=== PATIENT | male | born 1960 | race Caucasian/White ===

== ENCOUNTER 2016-11-23 04:57 | Emergency (ER) | payer MEDICARE, OTHER ==
[~2016-11-23 04:57] MED LIST: CLON0.5T PO; DIAS12.5 PR; OXCA300T2 PO; PHEN100 PO; PHEN30 PO; PHEN64.8 PO; POLY10O EACH EYE
[2016-11-23 05:01] VITALS: BP 157/65; PULSE 65; RESP 16; TEMP 97.6; O2SAT 95
[2016-11-23] MEDS ORDERED: TRIL300T PO ×4 (05:09→05:26)
[2016-11-23] MEDS ORDERED: [UNRECOGNIZED DRUG - CODE] PO (05:26)
[2016-11-23] MEDS ORDERED: PHEN-414 PO (05:26)
[2016-11-23] MEDS ORDERED: DILA100C PO (05:26)
[2016-11-23] MEDS ORDERED: PHENO60 PO ×2 (05:26)
[2016-11-23] MEDS ORDERED: CLON0.5T PO (05:26)
--- NOTE | 2016-11-23 05:28 | PD ---
HPI . Seizure Chief Complaint: Seizure Time Seen by Provider: 05:14 Travel History International Travel<30 days: No Contact w/Intl Traveler<30days: No Traveled to known affect area: No History of Present Illness HPI Patient was brought to us via [facility] with the chief complaint of seizure 3 in the past 24 hours. Patient has a known seizure disorder. He is treated with Dilantin and Keppra. The patient has developmental delay and lives with his mother. Mother reports dysuria and is concerned that he has urinary tract infection. Patient denies any injury related to the seizure. PFSH Past Medical History Arthritis: No Asthma: No Autoimmune Disease: No Blood Disorders: No Heart Rhythm Problems: No Cancer: No Cardiomyopathy: No Cardiovascular Problems: No High Cholesterol: No Chemotherapy: No Chest Pain: No Congestive Heart Failure: No COPD: No Cerebrovascular Accident: No Developmental Delay: Yes Diabetes: No Diminished Hearing: No Endocrine: No Gastrointestinal Disorders: No GERD: No Glaucoma: No Genitourinary: No Headaches: Yes Hepatitis: No Hiatal Hernia: No Hypertension: No Immune Disorder: No Implanted Vascular Access Dvce: Yes Kidney Stones: No Musculoskeletal: No Neurologic: Yes Psychiatric: No Reproductive: No Respiratory: No Immunizations Current: Yes Myocardial Infarction: No Radiation Therapy: No Renal Failure: No Seizures: Yes (EPILEPSY) Sleep Apnea: No Thyroid Disease: No Ulcer: No Tetanus Vaccination: > 5 Years Influenza Vaccination: No Past Surgical History Abdominal Surgery: Yes (Appendectomy) AICD: No Appendectomy: Yes Body Medical Devices: SHIRAZ NERVE STIMULATOR Cardiac Surgery: No Ear Surgery: No Endocrine Surgery: No Eye Surgery: No Genitourinary Surgery: No Gynecologic Surgery: No Joint Replacement: No Neurologic Surgery: Yes (IMPLANT - NERVE STIMULATOR) Oral Surgery: No Pacemaker: No Thoracic Surgery: No Other Surgery: Yes (skull fracture repair 1952 per mother) Social History Alcohol Use: No Tobacco Use: No Substance Use: No Allergies-Medications (Allergen,Severity, Reaction): Coded Allergies: ANTIHISTAMINE DRUGS (Verified Allergy, Severe, 08/12/15) Depakote (Verified Allergy, Severe, 08/12/15) Uncoded Allergies: THERAFLU (Allergy, Severe, Seizures, 12/10/11) Reported Meds & Prescriptions Reported Meds & Active Scripts Active Reported Briviact (Brivaracetam) 50 Mg/5 Ml Inj 50 Mg PO DAILY Phenobarbital 32.4 Mg Tab 32.4 Mg PO HS Phenobarbital 64.8 Mg Tab 64.8 Mg PO DAILYAC Phenobarbital 64.8 Mg Tab 64.8 Mg PO DAILY Dilantin (Phenytoin Extended) 100 Mg Cap 100 Mg PO HS Clonazepam 0.5 Mg Tab 0.5 Mg PO HS Trileptal (Oxcarbazepine) 300 Mg Tab 300 Mg PO DAILY Trileptal (Oxcarbazepine) 300 Mg Tab 300 Mg PO AC LUNCH Trileptal (Oxcarbazepine) 300 Mg Tab 600 Mg PO HS Trileptal (Oxcarbazepine) 300 Mg Tab 600 Mg PO DAILY@0600 Review of Systems Except as stated in HPI: all other systems reviewed are Neg General / Constitutional: No: Fever, Chills Genitourinary: Positive: Dysuria Neurologic: Positive: Seizures Physical Exam Narrative GENERAL: The patient is slow to respond but answers questions appropriately. He is in no acute distress. SKIN: Warm and dry. HEAD: Atraumatic. Normocephalic. EYES: Pupils equal and round. ENT: No nasal bleeding or discharge. Mucous membranes pink and moist. No injury to the tongue. NECK: Trachea midline. Neck is supple. CARDIOVASCULAR: Regular rate and rhythm. Heart sounds are normal. RESPIRATORY: No accessory muscle use. Lungs are clear with full air movement throughout. GASTROINTESTINAL: Abdomen soft, non-tender, nondistended. MUSCULOSKELETAL: No obvious deformities. No edema. NEUROLOGICAL: Awake and alert. No obvious cranial nerve deficits. Motor grossly within normal limits. Normal speech. PSYCHIATRIC: Appropriate mood and affect; insight and judgment normal. Data Data Last Documented VS Vital Signs Date Time Temp Pulse Resp B/P Pulse Ox O2 Delivery O2 Flow Rate FiO2 11/23/16 05:01 97.6 65 16 157/65 95 Orders Complete Blood Count With Diff (11/23/16 05:14) Basic Metabolic Panel (Bmp) (11/23/16 05:14) Blood Glucose (11/23/16 05:14) Ecg Monitoring (11/23/16 05:14) Iv Access Insert/Monitor (11/23/16 05:14) Oximetry (11/23/16 05:14) Sodium Chloride 0.9% Flush (Ns Flush) (11/23/16 05:15) Urinalysis - C+S If Indicated (11/23/16 05:16) Phenytoin (Dilantin) (11/23/16 05:22) Trileptal (Oxycarbazapine) (11/23/16 05:22) Fosphenytoin Inj (Cerebyx Inj) (11/23/16 06:15) Labs Laboratory Tests Test 11/23/16 05:15 White Blood Count 6.4 TH/MM3 Red Blood Count 4.33 MIL/MM3 Hemoglobin 13.4 GM/DL Hematocrit 38.9 % Mean Corpuscular Volume 89.7 FL Mean Corpuscular Hemoglobin 31.0 PG Mean Corpuscular Hemoglobin 34.6 % Concent Red Cell Distribution Width 13.8 % Platelet Count 224 TH/MM3 Mean Platelet Volume 8.8 FL Neutrophils (%) (Auto) 63.6 % Lymphocytes (%) (Auto) 22.3 % Monocytes (%) (Auto) 8.3 % Eosinophils (%) (Auto) 5.3 % Basophils (%) (Auto) 0.5 % Neutrophils # (Auto) 4.0 TH/MM3 Lymphocytes # (Auto) 1.4 TH/MM3 Monocytes # (Auto) 0.5 TH/MM3 Eosinophils # (Auto) 0.3 TH/MM3 Basophils # (Auto) 0.0 TH/MM3 CBC Comment DIFF FINAL Differential Comment Urine Color YELLOW Urine Turbidity CLEAR Urine pH 7.0 Urine Specific Berkley 1.017 Urine Protein NEG mg/dL Urine Glucose (UA) NEG mg/dL Urine Ketones NEG mg/dL Urine Occult Blood NEG Urine Nitrite NEG Urine Bilirubin NEG Urine Urobilinogen LESS THAN 2.0 MG/DL Urine Leukocyte Esterase NEG Urine RBC 1 /hpf Urine WBC 2 /hpf Urine Transitional Epithelial <1 /hpf Cells Urine Renal Epithelial Cells <1 /hpf Urine Amorphous Sediment RARE Urine Bacteria FEW /hpf Urine Mucus FEW /lpf Urine Sperm FEW Microscopic Urinalysis Comment CULT NOT INDICATED Sodium Level 137 MEQ/L Potassium Level 4.3 MEQ/L Chloride Level 103 MEQ/L Carbon Dioxide Level 28.0 MEQ/L Anion Gap 6 MEQ/L Blood Urea Nitrogen 11 MG/DL Creatinine 0.64 MG/DL Estimat Glomerular Filtration 128 ML/MIN Rate Random Glucose 96 MG/DL Calcium Level 8.3 MG/DL Phenytoin (Dilantin) Level 3.4 MCG/ML MDM Medical Decision Making Medical Screen Exam Complete: Yes Emergency Medical Condition: Yes Medical Record Reviewed: Yes Differential Diagnosis Differential diagnosis of seizure includes but is not limited to epilepsy, electrolyte abnormality, previous stroke, closed head injury Narrative Course Patient presents status post seizures 3 at home. He also has dysuria. UA is negative for infection. CBC & BMP Diagram 11/23/16 05:15 Dilantin level was 3.4. A loading dose of fosphenytoin has been ordered. Diagnosis Primary Impression: Breakthrough seizure Additional Impression: Subtherapeutic serum dilantin level Patient Instructions: General Instructions, Recurrent Seizures in Adults (DC) Disposition: 01 DISCHARGE HOME Condition: Stable Amarilys Main MD November 23, 2016 05:28
[2016-11-23 05:30] LABS: BASOPHIL % 0.5 % (0.0-2.0); EOSINOPHIL # 0.3 TH/MM3 (0-0.4); EOSINOPHIL % 5.3 % (0.0-4.0); HEMATOCRIT 38.9 % (39.0-51.0); HEMO FLAGS DIFF FINAL; LYMPH % 22.3 % (9.0-44.0); LYMPHOCYTE # 1.4 TH/MM3 (1.0-4.8); MEAN CELL VOLUME 89.7 FL (80.0-100.0); MEAN CORPUSCULAR HGB CONC 34.6 % (32.0-36.0); MONO % 8.3 % (0.0-8.0); NEUT % 63.6 % (16.0-70.0); PLATELET COUNT 224 TH/MM3 (150-450); RED BLOOD COUNT 4.33 MIL/MM3 (4.50-5.90); RED CELL DISTRIBUTION WIDTH 13.8 % (11.6-17.2); WHITE BLOOD COUNT 6.4 TH/MM3 (4.0-11.0)
[2016-11-23 06:00] VITALS: BP 115/61; PULSE 62; RESP 16; O2SAT 98
[2016-11-23 06:02] LABS: BACTERIA, URINE FEW /hpf; BLOOD, URINE NEG (NEG); COMMENT (UR) CULT NOT INDICATED; CULTURE IF INDICATED CULT NOT INDICATED; GLUCOSE,URINE NEG (NEG); KETONE, URINE NEG (NEG); MUCUS URINE FEW /lpf (OCC); NITRITE,URINE NEG (NEG); RENAL EPITHELIAL CELLS <1 /hpf; TRANSITIONAL EPI CELLS, URINE <1 /hpf; URINE COLOR YELLOW (YELLW/STRAW)
[2016-11-23 06:05] LABS: POTASSIUM 4.3 MEQ/L (3.5-5.1)
[2016-11-23] MEDS ORDERED: FOSPHENYTOIN INJ 1,000 MGPE in SODIUM CHLORIDE 0.9% INJ 50 ML IV ONE (06:15)
[2016-11-23] MEDS: SODIUM CHLORIDE 0.9% FLUSH 10 ML FLUSH IVF PRN ×2 (06:49→07:25)
[2016-11-23 07:30] VITALS: BP 122/78; TEMP 98.1
--- NOTE | 2016-11-23 11:51 | EKG ---
Date Performed: 11/23/2016 Time Performed: 05:05:24 PTAGE: 56 years EKG: Sinus rhythm NORMAL ECG PREVIOUS TRACING : 08/12/2015 13.52 No significant change from previous tracing noted. DOCTOR: Satya Tobar Interpretating Date/Time 11/23/2016 11:49:50
== END 2016-11-23 07:30 | disposition home or self-care (01) ==
LOC: NEPC 04:57
DX: G40.89 Other seizures (principal); G40.909 Epilepsy, unspecified, not intractable, without status epilepticus; R79.89 Other specified abnormal findings of blood chemistry; R30.0 Dysuria; Z51.81 Encounter for therapeutic drug level monitoring; Z79.899 Other long term (current) drug therapy; Z86.69 Personal history of other diseases of the nervous system and sense organs
CPT/HCPCS: 80048; 80183; 80185; 81001; 85025; 93005; 96365; 99284; Q2009

== ENCOUNTER 2017-05-29 12:23 | Emergency (ER) | payer MEDICARE, OTHER ==
[~2017-05-29] VITALS: Ht 172.7 cm; Wt 90.0 kg
[~2017-05-29 12:23] MED LIST changes: -DIAS12.5 PR; +DILA100C PO; +OXCA300 PO; -OXCA300T2 PO; +PHEN-414 PO; -PHEN30 PO; +PHENO60 PO; -POLY10O EACH EYE; +TOPI25 PO; +TRIL300T PO; +[UNRECOGNIZED DRUG - CODE] PO
[2017-05-29 12:26] VITALS: BP 138/81; PULSE 78; RESP 18; TEMP 98.7; O2SAT 93
[2017-05-29] MEDS ORDERED: BRIV1TAB7 PO (13:26)
--- NOTE | 2017-05-29 13:58 | PD ---
HPI Chief Complaint: Pain: Acute or Chronic Time Seen by Provider: 13:18 Travel History International Travel<30 days: No Contact w/Intl Traveler<30days: No Traveled to known affect area: No History of Present Illness HPI 57-year-old male presents to emergency department for left hip pain after a mechanical fall that occurred 2 days ago. States that he tripped over his feet and fell on his left hip. Patient has been ambulatory but his pain is persistent and decided to come into the emergency department today. States his pain is non-radiating, mainly located in the left hip with occasional lower lumbar pain that increases with movement and decreases with rest. Patient denies weakness, numbness, tingling, no loss of bowel or bladder function, IVDU , personal history of cancer. He does have chronic low back pain. Denies head trauma, LOC, dizziness, visual changes, head pain, neck pain, fever, chills, chest pain, shortness of breath. He has an extensive history of epilepsy however, mother states he has been seizure-free for approximately 7 months after a change of medications. Not on anticoagulants. Mother provides most of the history. PFSH Past Medical History Arthritis: No Asthma: No Autoimmune Disease: No Blood Disorders: No Heart Rhythm Problems: No Cancer: No Cardiomyopathy: No Cardiovascular Problems: Yes High Cholesterol: No Chemotherapy: No Chest Pain: No Congestive Heart Failure: No COPD: No Cerebrovascular Accident: No Developmental Delay: Yes Diabetes: Yes Diminished Hearing: No Endocrine: No Gastrointestinal Disorders: No GERD: Yes Glaucoma: No Genitourinary: No Headaches: Yes Hepatitis: No Hiatal Hernia: No Hypertension: Yes Immune Disorder: No Implanted Vascular Access Dvce: Yes Kidney Stones: No Musculoskeletal: No Neurologic: Yes Psychiatric: No Reproductive: No Respiratory: Yes Immunizations Current: Yes Migraines: No Myocardial Infarction: No Radiation Therapy: No Renal Failure: No Seizures: Yes (EPILEPSY) Sleep Apnea: No Thyroid Disease: No Ulcer: No Menopausal: Yes Past Surgical History Abdominal Surgery: Yes (Appendectomy) AICD: No Appendectomy: Yes Body Medical Devices: SHIRAZ NERVE STIMULATOR Cardiac Surgery: No Ear Surgery: No Endocrine Surgery: No Eye Surgery: No Genitourinary Surgery: No Gynecologic Surgery: No Joint Replacement: No Neurologic Surgery: Yes (IMPLANT - NERVE STIMULATOR) Oral Surgery: No Pacemaker: No Thoracic Surgery: No Other Surgery: Yes (skull fracture repair 1952 per mother) Social History Alcohol Use: No Tobacco Use: No Substance Use: No Allergies-Medications (Allergen,Severity, Reaction): Coded Allergies: divalproex sodium (Unverified Allergy, Severe, 03/08/17) Uncoded Allergies: ANTIHISTAMINE (Allergy, Severe, 03/08/17) THERAFLU (Allergy, Severe, Seizures, 12/10/11) Reported Meds & Prescriptions Reported Meds & Active Scripts Active Topamax (Topiramate) 25 Mg Tab 25 Mg PO Q12H Reported Briviact (Brivaracetam) 100 Mg Tab 200 Mg PO BID Phenobarbital 32.4 Mg Tab 32.4 Mg PO HS Phenobarbital 64.8 Mg Tab 64.8 Mg PO DAILYAC Dilantin (Phenytoin Extended) 100 Mg Cap 100 Mg PO HS Clonazepam 0.5 Mg Tab 0.5 Mg PO HS Trileptal (Oxcarbazepine) 300 Mg Tab 300 Mg PO AC LUNCH Trileptal (Oxcarbazepine) 300 Mg Tab 600 Mg PO HS Trileptal (Oxcarbazepine) 300 Mg Tab 600 Mg PO DAILY@0600 Clonazepam 0.5 Mg Tab 0.5 Mg PO HS Phenobarbital 64.8 Mg Tab 64.8 Mg PO DAILY IN THE AM Review of Systems Except as stated in HPI: all other systems reviewed are Neg Physical Exam Narrative GENERAL: Well-developed well-nourished in no apparent distress lying comfortably in bed SKIN: Focused skin assessment warm/dry. No areas of ecchymosis. Skin intact. HEAD: Atraumatic. Normocephalic. EYES: Pupils equal and round. No scleral icterus. No injection or drainage. EOMI. ENT: No nasal bleeding or discharge. Mucous membranes pink and moist. NECK: Trachea midline. No JVD. No midline tenderness. CARDIOVASCULAR: Regular rate and rhythm. No murmur appreciated. RESPIRATORY: No accessory muscle use. Clear to auscultation. Breath sounds equal bilaterally. GASTROINTESTINAL: Abdomen soft, non-tender, nondistended. MUSCULOSKELETAL: No obvious deformities. No clubbing. No cyanosis. No edema. Lateral hip TTP about the trochanteric bursa. BACK: No CVA tenderness. No rash. No point tenderness on palpation of the spine. Mild TTP to left lumbar paraspinous muscles. Pain in the lumbar region with left hip flexion. Neurovascularly intact. NEUROLOGICAL: Awake and alert. No obvious cranial nerve deficits. Motor grossly within normal limits. Normal speech. PSYCHIATRIC: Appropriate mood and affect; insight and judgment normal. Data Data Last Documented VS Vital Signs Date Time Temp Pulse Resp B/P (MAP) Pulse Ox O2 Delivery O2 Flow Rate FiO2 05/29/17 12:26 98.7 78 18 138/81 (100) 93 Room Air Orders Orders Spine, Lumbar - Ltd (Ap & Lat) (05/29/17 ) Hip, Uni(Ap&Lat) W Ap Pelvis (05/29/17 ) TLSO (05/29/17 ) Ed Discharge Order (05/29/17 14:45) MDM Medical Decision Making Medical Screen Exam Complete: Yes Emergency Medical Condition: Yes Differential Diagnosis Lumbar strain versus sprain versus fracture Left hip bursitis versus fracture versus contusion Narrative Course 57-year-old male presents to emergency department for left hip pain after slip and fall that occurred 2 days ago. States that he tripped over his feet and fell landing on his left hip. Patient has been ambulatory but his pain is persistent and decided to come into the emergency department today. States his pain is non-radiating, mainly located in the left hip with occasional lower lumbar pain that increases with movement and decreases with rest. Denies head trauma, LOC, dizziness, visual changes, head pain, neck pain, fever, chills, chest pain, shortness of breath. He has an extensive history of epilepsy however, mother states he has been seizure-free for approximately 7 months after a change of medications. Patient denies weakness, numbness, tingling, no loss of bowel or bladder function, IVDU, personal history of cancer. He does have chronic low back pain. Mother provides most of the history. No red flags Physical exam: pain in lumbar region with left leg/hip flexion, TTP to left lumbar paraspinus muscles, Skin intact. Mild TTP to lateral trochanter. Neurovascular intact Imaging study: Hip- no acute process. Lumbar- L3 compression fracture. Back brace. Continue Tylenol. Patient to return for worsening or persistent symptoms and follow-up with orthopedics within 1 week. Mother and patient understands and agrees. Diagnosis Primary Impression: Compression fracture of body of thoracic vertebra Additional Impression: Contusion of left hip Qualified Codes: S70.02XA - Contusion of left hip, initial encounter Referrals: Artemio Mahmood MD Orthopedist Primary Care Physician Patient Instructions: Acute Low Back Pain (ED), General Instructions Additional Instructions: Perform light stretches of the lower back and legs, and alternate heat and ice packs. If you develop increased pain, weakness, fever, chills, or bowel or bladder issues, return to the ED for further treatment and evaluation. Follow up with your primary care physician in 2-3 days. Use brace daily. Continue tylenol for pain. Follow up with ortho this week. Disposition: 01 DISCHARGE HOME Condition: Stable Luz Quinones May 29, 2017 13:58
--- NOTE | 2017-05-29 14:29 | RADRPT ---
EXAM DATE/TIME: 05/29/2017 14:11 [facility] COMPARISON: No previous studies available for comparison. INDICATIONS : Low back pain, fell MEDICAL HISTORY : Seizures. SURGICAL HISTORY : ENCOUNTER: Initial ACUITY: 3 days PAIN SCORE: 10/10 LOCATION: Lumbar spine FINDINGS: Mild to moderate superior endplate compression deformity seen of the L3 vertebral body and appears ac aysha. No significantly retropulsed fracture fragments are demonstrated. Other vertebral bodies have no rmal height. No subluxations are seen. CONCLUSION: Mild to moderate acute compression fracture of L3. Nathan Hyman MD on May 29, 2017 at 14:26 Board Certified Radiologist. This report was verified electronically.
--- NOTE | 2017-05-29 14:30 | RADRPT ---
EXAM DATE/TIME: 05/29/2017 14:12 [facility] COMPARISON: No previous studies available for comparison. INDICATIONS : Left hip pain MEDICAL HISTORY : Seizures. SURGICAL HISTORY : ENCOUNTER: Initial ACUITY: 3 days PAIN SCORE: 6/10 LOCATION: Left Hip FINDINGS: The bony pelvis is intact and has normal morphology. No fracture or subluxation of the left hip. Ther e is mild bilateral hip osteoarthritis. CONCLUSION: Intact pelvis and left hip. Mild bilateral hip osteoarthritis. Nathan Hyman MD on May 29, 2017 at 14:27 Board Certified Radiologist. This report was verified electronically.
== END 2017-05-29 15:08 | disposition home or self-care (01) ==
LOC: NEPD 12:23
DX: S22.039A Unspecified fracture of third thoracic vertebra, initial encounter for closed fracture (principal); S70.02XA Contusion of left hip, initial encounter; M16.0 Bilateral primary osteoarthritis of hip; G40.909 Epilepsy, unspecified, not intractable, without status epilepticus; E11.9 Type 2 diabetes mellitus without complications; K21.9 Gastro-esophageal reflux disease without esophagitis; I10 Essential (primary) hypertension; W01.0XXA Fall on same level from slipping, tripping and stumbling without subsequent striking against object, initial encounter
CPT/HCPCS: 72100; 73502; 99283

== ENCOUNTER 2017-09-22 09:47 | Inpatient (IN) | payer MEDICARE, OTHER ==
[2017-09-22] VITALS (7 sets, daily range): BP systolic 112–144; BP diastolic 56–73; PULSE 64–86; RESP 14–18; TEMP 98.1–98.7; O2SAT 95–99
[~2017-09-22] VITALS: Ht 180.3 cm; Wt 91.8 kg
[~2017-09-22 09:47] MED LIST changes: +BRIV1TAB7 PO; -OXCA300 PO; -PHEN100 PO; -[UNRECOGNIZED DRUG - CODE] PO
[2017-09-22] MEDS ORDERED: PHENO60 PO (10:07)
[2017-09-22] MEDS ORDERED: TRIL300T PO (10:07)
[2017-09-22] MEDS ORDERED: TRIL600T PO (10:07)
[2017-09-22] MEDS ORDERED: PHEN-414 PO (10:07)
[2017-09-22 10:43] LABS: BASOPHIL % 0.2 % (0.0-2.0); EOSINOPHIL % 0.1 % (0.0-4.0); HEMATOCRIT 42.1 % (39.0-51.0); HEMOGLOBIN 14.4 GM/DL (13.0-17.0); LYMPH % 6.8 % (9.0-44.0); LYMPHOCYTE # 0.8 TH/MM3 (1.0-4.8); MEAN CELL VOLUME 91.6 FL (80.0-100.0); MEAN CORPUSCULAR HEMOGLOBIN 31.3 PG (27.0-34.0); MEAN CORPUSCULAR HGB CONC 34.2 % (32.0-36.0); MEAN PLATELET VOLUME 8.5 FL (7.0-11.0); MONO % 4.3 % (0.0-8.0); MONOCYTE # 0.5 TH/MM3 (0-0.9); NEUT % 88.6 % (16.0-70.0); PLATELET COUNT 227 TH/MM3 (150-450); RED BLOOD COUNT 4.59 MIL/MM3 (4.50-5.90); RED CELL DISTRIBUTION WIDTH 13.8 % (11.6-17.2); WHITE BLOOD COUNT 11.3 TH/MM3 (4.0-11.0)
[2017-09-22 11:08] LABS: BICARBONATE 27.6 MEQ/L (21.0-32.0); CALCIUM 8.7 MG/DL (8.5-10.1); CREATININE 0.84 MG/DL (0.60-1.30)
[2017-09-22 11:11] LABS: PHENYTOIN (DILANTIN) 6.7 MCG/ML (10.0-20.0)
[2017-09-22] MEDS ORDERED: SODIUM CHLOR 0.9% 1000 ML INJ 1,000 ML IV ONE (11:45)
[2017-09-22] MEDS ORDERED: PHENYTOIN IV ONE (11:45)
[2017-09-22] MEDS ORDERED: SODIUM CHLORIDE 0.9% IV ONE (11:45)
--- NOTE | 2017-09-22 11:51 | PD ---
HPI Chief Complaint: Seizure Time Seen by Provider: 11:29 Travel History International Travel<30 days: No Contact w/Intl Traveler<30days: No Traveled to known affect area: No History of Present Illness HPI 57 -year-old male presents to the emergency department for evaluation of seizure. According to the triage note, the patient had 2 witnessed seizures one was witnessed by EMS. Per EMS, both seizures lasted approximately 1 minute. EMS gave patient percent 2 mg IM for seizure. His mother is at bedside. She states that she checks on him often. When she came over this morning, he was lying on the floor. She states that he stated he fell trying to go to the bathroom and had urinated on the floor. She states at that time, he was slurring oriented and answering all questions. She gave him his morning meds and called EMS and then he had a seizure. She reports that he has a history of epilepsy. His neurologist is Dr. Narayanan. The patient at this time will spontaneously move his head in all extremities, but does not follow commands. He is unable to contribute to history and physical. No exacerbating or alleviating factors. Moderate severity. PFSH Past Medical History Arthritis: No Asthma: No Autoimmune Disease: No Blood Disorders: No Heart Rhythm Problems: No Cancer: No Cardiomyopathy: No Cardiovascular Problems: Yes High Cholesterol: No Chemotherapy: No Chest Pain: No Congestive Heart Failure: No COPD: No Cerebrovascular Accident: No Developmental Delay: Yes Diabetes: Yes Diminished Hearing: No Endocrine: No Gastrointestinal Disorders: No GERD: Yes Glaucoma: No Genitourinary: No Headaches: Yes Hepatitis: No Hiatal Hernia: No Hypertension: Yes Immune Disorder: No Implanted Vascular Access Dvce: Yes Kidney Stones: No Musculoskeletal: No Neurologic: Yes Psychiatric: No Reproductive: No Respiratory: Yes Immunizations Current: Yes Migraines: No Myocardial Infarction: No Radiation Therapy: No Renal Failure: No Seizures: Yes (EPILEPSY) Sleep Apnea: No Thyroid Disease: No Ulcer: No Menopausal: Yes Past Surgical History Abdominal Surgery: Yes (Appendectomy) AICD: No Appendectomy: Yes Body Medical Devices: SHIRAZ NERVE STIMULATOR Cardiac Surgery: No Ear Surgery: No Endocrine Surgery: No Eye Surgery: No Genitourinary Surgery: No Gynecologic Surgery: No Insulin Pump: No Joint Replacement: No Neurologic Surgery: Yes (IMPLANT - NERVE STIMULATOR) Oral Surgery: No Pacemaker: No Thoracic Surgery: No Other Surgery: Yes (skull fracture repair 1952 per mother) Social History Alcohol Use: No Tobacco Use: No Substance Use: No Allergies-Medications (Allergen,Severity, Reaction): Coded Allergies: divalproex sodium (Unverified Allergy, Severe, 03/08/17) Uncoded Allergies: ANTIHISTAMINE (Allergy, Severe, 03/08/17) THERAFLU (Allergy, Severe, Seizures, 12/10/11) Reported Meds & Prescriptions Reported Meds & Active Scripts Active Reported Phenobarbital 32.4 Mg Tab 32.4 Mg PO HS Phenobarbital 64.8 Mg Tab 64.8 Mg PO DAILY Trileptal (Oxcarbazepine) 300 Mg Tab 300 Mg PO DAILY Trileptal (Oxcarbazepine) 600 Mg Tab 600 Mg PO BID Briviact (Brivaracetam) 100 Mg Tab 200 Mg PO BID Dilantin (Phenytoin Extended) 100 Mg Cap 100 Mg PO HS Clonazepam 0.5 Mg Tab 0.5 Mg PO HS Review of Systems Except as stated in HPI: all other systems reviewed are Neg Physical Exam Narrative GENERAL: Well-nourished, well-developed male patient, afebrile. SKIN: Focused skin assessment warm/dry. HEAD: Normocephalic. Small abrasion noted to forehead.. EYES: No scleral icterus. No injection or drainage. PERRLA. ENT: Mucosa pink and moist. No erythema or exudates. No uvular edema. No uvular , palatal, or tonsillar deviation. Airway patent. Nasal turbinates appear normal without nasal blood, purulent drainage or septal hematoma. Bilateral tympanic membranes are clear without erythema or perforation. Gag reflex is intact. NECK: Supple, trachea midline. No JVD or lymphadenopathy. CARDIOVASCULAR: Regular rate and rhythm without murmurs, gallops, or rubs. RESPIRATORY: Breath sounds equal bilaterally. No accessory muscle use. Lungs sounds clear to auscultation. GASTROINTESTINAL: Abdomen soft, non-tender, nondistended. MUSCULOSKELETAL: No cyanosis, or edema. Patient does not follow commands, but moves all extremities spontaneously. BACK: Nontender without obvious deformity. No CVA tenderness. Data Data Last Documented VS Vital Signs Date Time Temp Pulse Resp B/P (MAP) Pulse Ox O2 Delivery O2 Flow Rate FiO2 09/22/17 14:09 86 18 144/70 (94) 95 Room Air 09/22/17 12:02 2.00 09/22/17 09:52 98.7 Orders Orders Blood Glucose (09/22/17 10:20) Oximetry (09/22/17 10:20) Iv Access Insert/Monitor (09/22/17 10:20) Ecg Monitoring (09/22/17 10:20) Oxygen Administration (09/22/17 10:20) Phenytoin (Dilantin) (09/22/17 10:20) Basic Metabolic Panel (Bmp) (09/22/17 10:20) Complete Blood Count With Diff (09/22/17 10:20) Phenytoin Inj (Dilantin Inj) (09/22/17 11:45) Ct Brain W/O Iv Contrast(Rout) (09/22/17 ) Ct Cerv Spine W/O Contrast (09/22/17 ) Magnesium (Mg) (09/22/17 11:39) Urinalysis - C+S If Indicated (09/22/17 11:39) Drug Screen, Random Urine (09/22/17 11:39) Trileptal (Oxycarbazapine) (09/22/17 11:39) Phenobarbital (09/22/17 11:39) Cath For Specimen (09/22/17 11:39) Alcohol (Ethanol) (09/22/17 11:39) Chest, Single Ap (09/22/17 ) Sodium Chlor 0.9% 1000 Ml Inj (Ns 1000 M (09/22/17 11:45) Electrocardiogram (09/22/17 ) Act Partial Throm Time (Ptt) (09/22/17 11:54) Prothrombin Time / Inr (Pt) (09/22/17 11:54) Lorazepam Inj (Ativan Inj) (09/22/17 14:00) Lorazepam Inj (Ativan Inj) (09/22/17 13:56) Labs Laboratory Tests Test 09/22/17 10:05 09/22/17 12:05 09/22/17 12:25 White Blood Count 11.3 TH/MM3 Red Blood Count 4.59 MIL/MM3 Hemoglobin 14.4 GM/DL Hematocrit 42.1 % Mean Corpuscular Volume 91.6 FL Mean Corpuscular Hemoglobin 31.3 PG Mean Corpuscular Hemoglobin Concent 34.2 % Red Cell Distribution Width 13.8 % Platelet Count 227 TH/MM3 Mean Platelet Volume 8.5 FL Neutrophils (%) (Auto) 88.6 % Lymphocytes (%) (Auto) 6.8 % Monocytes (%) (Auto) 4.3 % Eosinophils (%) (Auto) 0.1 % Basophils (%) (Auto) 0.2 % Neutrophils # (Auto) 10.0 TH/MM3 Lymphocytes # (Auto) 0.8 TH/MM3 Monocytes # (Auto) 0.5 TH/MM3 Eosinophils # (Auto) 0.0 TH/MM3 Basophils # (Auto) 0.0 TH/MM3 CBC Comment DIFF FINAL Differential Comment Blood Urea Nitrogen 7 MG/DL Creatinine 0.84 MG/DL Random Glucose 99 MG/DL Calcium Level 8.7 MG/DL Sodium Level 130 MEQ/L Potassium Level 4.2 MEQ/L Chloride Level 93 MEQ/L Carbon Dioxide Level 27.6 MEQ/L Anion Gap 9 MEQ/L Estimat Glomerular Filtration Rate 94 ML/MIN Phenytoin (Dilantin) Level 6.7 MCG/ML Prothrombin Time 10.7 SEC Prothromb Time International Ratio 1.1 RATIO Activated Partial Thromboplast Time 27.8 SEC Magnesium Level 1.9 MG/DL Phenobarbital Level 36.4 MCG/ML Ethyl Alcohol Level LESS THAN 3 MG/DL Urine Color LIGHT-YELLOW Urine Turbidity CLEAR Urine pH 8.0 Urine Specific [place] 1.008 Urine Protein NEG mg/dL Urine Glucose (UA) NEG mg/dL Urine Ketones NEG mg/dL Urine Occult Blood NEG Urine Nitrite NEG Urine Bilirubin NEG Urine Urobilinogen LESS THAN 2.0 MG/DL Urine Leukocyte Esterase NEG Urine RBC 4 /hpf Urine WBC 1 /hpf Urine Mucus FEW /lpf Urine Sperm FEW Microscopic Urinalysis Comment CULT NOT INDICATED Urine Opiates Screen NEG Urine Barbiturates Screen POS Urine Amphetamines Screen NEG Urine Benzodiazepines Screen POS Urine Cocaine Screen NEG Urine Cannabinoids Screen NEG MDM Medical Decision Making Medical Screen Exam Complete: Yes Emergency Medical Condition: Yes Medical Record Reviewed: Yes Interpretation(s) chest x-ray - CONCLUSION: Left basilar atelectasis with no other evidence of acute process. CT brain - CONCLUSION: Marked encephalomalacia of the left temporal lobe unchanged from the previous study. No evidence of hemorrhage or edema. CT cervical spine - CONCLUSION: Normal examination. Differential Diagnosis Recurrent seizure versus electrolyte abnormality versus intracranial abnormality versus subtherapeutic Dilantin level Narrative Course 57-year-old male presents to the emergency department via EMS for evaluation after he had 2 witnessed seizures. According to mother, he fell this morning as well as she found him lying on the floor. EKG, CBC, BMP, magnesium, UA, urine drug screen, alcohol level, Trileptal level, phenobarbital level, Dilantin level are ordered and pending. CT of the brain and cervical spine are ordered and pending. Chest x-ray is ordered and pending. Patient is given normal saline 1 L IV bolus, Dilantin 750 mg IV. EKG shows sinus rhythm, heart rate 77, no acute ST changes. CBC shows leukocytosis of 11.3. BMP shows hyponatremia 130. Magnesium is 1.9. Dilantin is subtherapeutic at 6.7. UA is negative for acute infection. UDS is positive for barbiturates and benzodiazepines. Alcohol level is less than 3. CT of the brain Marked encephalomalacia of the left temporal lobe unchanged from the previous study. No evidence of hemorrhage or edema. CT of the cervical spine is normal. Chest x-ray shows left basilar atelectasis with no other evidence of acute process. Patient was starting to follow commands and talking. However, before all results to return, the patient had a number seizure, witnessed by staff. Before I could get into the room, he was already post ictal. He is given Ativan 2 mg IV. Patient will be admitted for further evaluation. Hospital is paged for admission. Dr. Barrientos accepted admission Diagnosis Primary Impression: Epilepsy Qualified Codes: G40.909 - Epilepsy, unspecified, not intractable, without status epilepticus Admitting Information Admitting Physician Requests: Admit Pepper Perez Sep 22, 2017 11:51
--- NOTE | 2017-09-22 12:45 | RADRPT ---
EXAM DATE/TIME: 09/22/2017 12:05 [facility] COMPARISON: CHEST SINGLE AP, January 17, 2016, 9:18. INDICATIONS : Seizure, short of breath MEDICAL HISTORY : seizures SURGICAL HISTORY : implanted device ENCOUNTER: Initial ACUITY: 1 day PAIN SCORE: Non-responsive. LOCATION: Bilateral chest FINDINGS: A single view of the chest demonstrates basilar hypoaeration with mild left-sided atelectasis. There is no evidence of consolidating airspace disease. The cardiomediastinal contours are unremarkable. O sseous structures are intact. CONCLUSION: Left basilar atelectasis with no other evidence of acute process. Christofer Todd MD on September 22, 2017 at 12:42 Board Certified Radiologist. This report was verified electronically.
[2017-09-22 13:06] LABS: BILIRUBIN, URINE NEG (NEG); BLOOD, URINE NEG (NEG); GLUCOSE,URINE NEG (NEG); KETONE, URINE NEG (NEG); MUCUS URINE FEW /lpf (OCC); NITRITE,URINE NEG (NEG); SPERM, URINE FEW; URINE COLOR LIGHT-YELLOW (YELLW/STRAW); URINE LEUKOCYTE ESTERASE NEG (NEG)
[2017-09-22 13:13] LABS: INTERNATIONAL NORMALIZED RATIO 1.1 RATIO; PROTHROMBIN TIME - PATIENT 10.7 SEC (9.8-11.6)
[2017-09-22 13:21] LABS: MAGNESIUM 1.9 MG/DL (1.5-2.5)
--- NOTE | 2017-09-22 13:39 | RADRPT ---
EXAM DATE/TIME: 09/22/2017 13:32 [facility] COMPARISON: CT BRAIN W/O CONTRAST, January 16, 2016, 16:22. INDICATIONS : Seizure. Fall. RADIATION DOSE: 41.02 CTDIvol (mGy) MEDICAL HISTORY : Hypertension. Diabetes SURGICAL HISTORY : None. ENCOUNTER: Initial ACUITY: 1 day PAIN SCALE: Non-responsive LOCATION: cranial TECHNIQUE: Multiple contiguous axial images were obtained of the head. Using automated exposure control and adj ustment of the mA and/or kV according to patient size, radiation dose was kept as low as reasonably a chievable to obtain optimal diagnostic quality images. DICOM format image data is available electro nically for review and comparison. FINDINGS: CEREBRUM: No significant encephalomalacia involving left temporal lobe, chronic. The ventricles are normal for age. No evidence of midline shift, mass lesion, hemorrhage or acute infarction. No extra-axial flui d collections are seen. POSTERIOR FOSSA: The cerebellum and brainstem are intact. The 4th ventricle is midline. The cerebellopontine angle i s unremarkable. EXTRACRANIAL: The visualized portion of the orbits is intact. SKULL: The calvaria is intact. No evidence of skull fracture. CONCLUSION: Marked encephalomalacia of the left temporal lobe unchanged from the previous study. No evidence of h emorrhage or edema. Blade Celaya MD on September 22, 2017 at 13:37 Board Certified Radiologist. This report was verified electronically.
--- NOTE | 2017-09-22 13:50 | RADRPT ---
EXAM DATE/TIME: 09/22/2017 13:32 [facility] COMPARISON: CT CERVICAL SPINE W/O CONTRAST, April 07, 2013, 9:53. INDICATIONS : Siezure. Fall. RADIATION DOSE: 23.25 CTDIvol (mGy) MEDICAL HISTORY : Hypertension. Diabetes SURGICAL HISTORY : None. ENCOUNTER: Initial ACUITY: 1 day PAIN SCALE: Non-responsive LOCATION: neck TECHNIQUE: Volumetric scanning of the cervical spine was performed. Multiplanar reconstructions in the sagittal, coronal and oblique axial planes were performed. Using automated exposure control and adjustment o f the mA and/or kV according to patient size, radiation dose was kept as low as reasonably achievable to obtain optimal diagnostic quality images. DICOM format image data is available electronically f or review and comparison. FINDINGS: VERTEBRAE: Normal vertebral body height. ALIGNMENT: No evidence of subluxation. C2-C3: The bony spinal canal is normal in size. No evidence of disc bulge or herniation. The neural forami na are bilaterally patent. C3-C4: The bony spinal canal is normal in size. No evidence of disc bulge or herniation. The neural forami na are bilaterally patent. C4-C5: The bony spinal canal is normal in size. No evidence of disc bulge or herniation. The neural forami na are bilaterally patent. C5-C6: The bony spinal canal is normal in size. No evidence of disc bulge or herniation. The neural forami na are bilaterally patent. C6-C7: The bony spinal canal is normal in size. No evidence of disc bulge or herniation. The neural forami na are bilaterally patent. C7-T1: The bony spinal canal is normal in size. No evidence of disc bulge or herniation. The neural forami na are bilaterally patent. CONCLUSION: Normal examination. Blade Celaya MD on September 22, 2017 at 13:49 Board Certified Radiologist. This report was verified electronically.
[2017-09-22] MEDS ORDERED: LORazepam 2 MG/ML VIAL ONE (13:56)
[2017-09-22] MEDS ORDERED: LORazepam 2 MG/ML VIAL IV PUSH ONE (14:00)
[2017-09-22] MEDS ORDERED: ACETAMINOPHEN 325 MG TAB PO PRN (15:00)
[2017-09-22] MEDS: OXcarbazepine 300 MG TAB PO SCH (15:00)
[2017-09-22] MEDS ORDERED: LORazepam 2 MG/ML VIAL IV PUSH PRN (15:15)
--- NOTE | 2017-09-22 15:15 | HHI.HP ---
cc: Be Narayanan MD PhD [facility] Service [facility] Primary Care Physician Be Narayanan MD, PhD Admission Diagnosis epilepsy Diagnoses: (1) Seizure disorder (2) Breakthrough seizure Chief Complaint: Seizure Travel History International Travel<30 Days: No Contact w/Intl Traveler <30 Da: No Traveled to Known Affected Are: No History of Present Illness The patient is a 57-year-old male with known history of seizure disorder who was brought to the emergency department today following a seizure at home. The patient is sedated and unable to provide any history. His mother is at bedside and provides history. She states that this morning she went to give him his normal medications and found him lying on the floor. She believes that he tried to get up at night to go to the bathroom, for which he usually requires assistance. He apparently hit his head, as there is a red pacheco on his forehead. His mother believes that this happened in the ambulance or possibly in the ER, however nursing states that this was present upon his arrival in the ER. Per the patient's mother, who he lives with, the patient has not had any recent illnesses. He has not had any cough, dyspnea, nausea, vomiting, diarrhea. He sees a local neurologist and a neurologist in [place]. Apparently he was put on a different medication in [place] and has not had any seizures since that time. He had 2 more witnessed seizures since arrival in the ER. He has been given Ativan and is now sedated. Review of Systems ROS Limitations: Unresponsive (Sedated) Past Family Social History Past Medical History Epilepsy Past Surgical History Appendectomy Reported Medications Phenobarbital 32.4 Mg Tab 32.4 Mg PO HS Phenobarbital 64.8 Mg Tab 64.8 Mg PO DAILY Trileptal (Oxcarbazepine) 300 Mg Tab 300 Mg PO DAILY Trileptal (Oxcarbazepine) 600 Mg Tab 600 Mg PO BID Briviact (Brivaracetam) 100 Mg Tab 200 Mg PO BID Dilantin (Phenytoin Extended) 100 Mg Cap 100 Mg PO HS Clonazepam 0.5 Mg Tab 0.5 Mg PO HS Allergies: Coded Allergies: divalproex sodium (Unverified Allergy, Severe, 03/08/17) Uncoded Allergies: ANTIHISTAMINE (Allergy, Severe, 03/08/17) THERAFLU (Allergy, Severe, Seizures, 12/10/11) Family History The patient is unable to provide any history. His mother states that there is no other family history of seizures except for a nephew. She denies family history of heart disease, diabetes, cancer. Social History Per the patient's mother, no history of tobacco use, alcohol use, or illicit drug use. Physical Exam Vital Signs Vital Signs Date Time Temp Pulse Resp B/P (MAP) Pulse Ox O2 Delivery O2 Flow Rate FiO2 09/22/17 14:09 86 18 144/70 (94) 95 Room Air 09/22/17 12:02 64 14 120/71 (87) 98 Nasal Cannula 2.00 09/22/17 10:24 95 Nasal Cannula 2.00 09/22/17 10:00 70 14 95 Room Air 09/22/17 09:52 98.7 70 14 141/73 (95) 99 Physical Exam GENERAL: Well-nourished, well-developed male in no acute distress. HEENT: Normocephalic, atraumatic. Pupils equal, round and reactive. Extraocular movements intact. No scleral icterus. No injection or drainage. Oropharynx is clear. Mucous membranes are moist. CARDIOVASCULAR: Regular rate and rhythm without murmurs, gallops, or rubs. RESPIRATORY: Clear to auscultation. No wheezes, rales, or rhonchi. Breathing is non-labored. GASTROINTESTINAL: Abdomen soft, non-tender, nondistended. EXTREMITIES: No lower extremity edema. No calf tenderness. PSYCH: Sedated. NEURO: Patient is sedated and unable to follow commands for neurologic examination. Laboratory Laboratory Tests Test 09/22/17 10:05 09/22/17 12:05 09/22/17 12:25 White Blood Count 11.3 Red Blood Count 4.59 Hemoglobin 14.4 Hematocrit 42.1 Mean Corpuscular Volume 91.6 Mean Corpuscular Hemoglobin 31.3 Mean Corpuscular Hemoglobin Concent 34.2 Red Cell Distribution Width 13.8 Platelet Count 227 Mean Platelet Volume 8.5 Neutrophils (%) (Auto) 88.6 Lymphocytes (%) (Auto) 6.8 Monocytes (%) (Auto) 4.3 Eosinophils (%) (Auto) 0.1 Basophils (%) (Auto) 0.2 Neutrophils # (Auto) 10.0 Lymphocytes # (Auto) 0.8 Monocytes # (Auto) 0.5 Eosinophils # (Auto) 0.0 Basophils # (Auto) 0.0 CBC Comment DIFF FINAL Differential Comment Blood Urea Nitrogen 7 Creatinine 0.84 Random Glucose 99 Calcium Level 8.7 Sodium Level 130 Potassium Level 4.2 Chloride Level 93 Carbon Dioxide Level 27.6 Anion Gap 9 Estimat Glomerular Filtration Rate 94 Phenytoin (Dilantin) Level 6.7 Prothrombin Time 10.7 Prothromb Time International Ratio 1.1 Activated Partial Thromboplast Time 27.8 Magnesium Level 1.9 Phenobarbital Level 36.4 Ethyl Alcohol Level LESS THAN 3 Urine Color LIGHT-YELLOW Urine Turbidity CLEAR Urine pH 8.0 Urine Specific [place] 1.008 Urine Protein NEG Urine Glucose (UA) NEG Urine Ketones NEG Urine Occult Blood NEG Urine Nitrite NEG Urine Bilirubin NEG Urine Urobilinogen LESS THAN 2.0 Urine Leukocyte Esterase NEG Urine RBC 4 Urine WBC 1 Urine Mucus FEW Urine Sperm FEW Microscopic Urinalysis Comment CULT NOT INDICATED Urine Opiates Screen NEG Urine Barbiturates Screen POS Urine Amphetamines Screen NEG Urine Benzodiazepines Screen POS Urine Cocaine Screen NEG Urine Cannabinoids Screen NEG Result Diagram: 09/22/17 1005 09/22/17 1005 Imaging Last Impressions Head CT 09/22/17 0000 Signed Impressions: Service Date/Time: September 13:32 - CONCLUSION: Marked encephalomalacia of the left temporal lobe unchanged from the previous study. No evidence of hemorrhage or edema. Blade Celaya MD Chest X-Ray 09/22/17 0000 Signed Impressions: Service Date/Time: September 12:05 - CONCLUSION: Left basilar atelectasis with no other evidence of acute process. Christofer Todd MD Cervical Spine CT 09/22/17 0000 Signed Impressions: Service Date/Time: September 13:32 - CONCLUSION: Normal examination. Blade Celaya MD Caprini VTE Risk Assessment Caprini VTE Risk Assessment: No/Low Risk (score <= 1) Caprini Risk Assessment Model Point Value = 1 Point Value = 2 Point Value = 3 Point Value = 5 Age 41-60 Minor surgery BMI > 25 kg/m2 Swollen legs Varicose veins or History of unexplained or recurrent spontaneous Oral contraceptives or hormone replacement Sepsis (< 1 month) Serious lung disease, including pneumonia (< 1 month) Abnormal pulmonary function Acute myocardial infarction Congestive heart failure (< 1 month) History of inflammatory bowel disease Medical patient at bed rest Age 61-74 Arthroscopic surgery Major open surgery (> 45 min) Laparoscopic surgery (> 45 min) Malignancy Confined to bed (> 72 hours) Immobilizing plaster cast Central venous access Age >= 75 History of VTE Family history of VTE Factor V Leiden Prothrombin [id number] Lupus anticoagulant Anticardiolipin antibodies Elevated serum homocysteine Heparin-induced thrombocytopenia Other congenital or acquired thrombophilia Stroke (< 1 month) Elective arthroplasty Hip, pelvis, or leg fracture Acute spinal cord injury (< 1 month) Prophylaxis Regimen Total Risk Factor Score Risk Level Prophylaxis Regimen 0-1 Low Early ambulation 2 Moderate Order ONE of the following: *Sequential Compression Device (SCD) *Heparin 5000 units SQ BID 3-4 Higher Order ONE of the following medications: *Heparin 5000 units SQ TID *Enoxaparin/Lovenox 40 mg SQ daily (WT < 150 kg, CrCl > 30 mL/min) *Enoxaparin/Lovenox 30 mg SQ daily (WT < 150 kg, CrCl > 10-29 mL/min) *Enoxaparin/Lovenox 30 mg SQ BID (WT < 150 kg, CrCl > 30 mL/min) AND/OR *Sequential Compression Device (SCD) 5 or more Highest Order ONE of the following medications: *Heparin 5000 units SQ TID (Preferred with Epidurals) *Enoxaparin/Lovenox 40 mg SQ daily (WT < 150 kg, CrCl > 30 mL/min) *Enoxaparin/Lovenox 30 mg SQ daily (WT < 150 kg, CrCl > 10-29 mL/min) *Enoxaparin/Lovenox 30 mg SQ BID (WT < 150 kg, CrCl > 30 mL/min) AND *Sequential Compression Device (SCD) Assessment and Plan Assessment and Plan 1. Seizures: Patient has had 3 witnessed seizures today. He had apparently gone an extended period of time since his previous seizure following a medication change done by his neurologist in [place]. He did reportedly fall this morning and apparently hit his head. Head CT shows no acute changes. Consult neurology. Neuro checks. Seizure precautions. Per nursing, the patient's mother keeps removing the blankets that are being used as padding on the bed railings. Patient received IV Dilantin in the ER. Ativan as needed for seizure activity. EEG ordered. Resume home antiepileptic medications when awake. 2. Mild hyponatremia: IV fluids. Monitor labs. 3. Leukocytosis: Possibly stress reaction. Monitor labs. 4. DVT prophylaxis: TONEY Villasenor. Jan Barrientos MD Sep 22, 2017 15:15
[2017-09-22] MEDS: SODIUM CHLOR 0.9% 1000 ML INJ 1,000 ML IV SCH (15:26)
--- NOTE | 2017-09-22 17:08 | MB ---
cc: Be Narayanan MD, PhD Be Narayanan MD, PhD DATE OF CONSULT: REASON FOR CONSULTATION: Breakthrough seizure. HISTORY OF PRESENT ILLNESS: Mr. Hooks is a 57-year-old man with a long history of seizure disorder. He has been relatively stable with no seizures for a number of years on Klonopin 0.5 mg at bedtime, Dilantin 200 mg at bedtime, phenobarbital 64.8 mg one in the morning and one half at night, Briviact 50 mg two b.i.d. and Trileptal 300 mg two in the morning, one at noon and two at night. Early this morning, he mother states he had a recurrent generalized tonic clonic seizure. He has been postictal since then. He came to the ER. She states he has been taking his meds. He has not missed any medications. There has been no stressors, no lack of sleep, etc. In the ER, he had 2 more seizures witnessed and was given Ativan as well. He did get IV Dilantin in the emergency room, because his level was low at 6.7. He has had no recurrent seizures since then and received 750 mg of Dilantin IV loading. NEUROLOGIC EXAMINATION: Blood pressure is 144/70, pulse 86, respiratory rate 18, temperature 98.7. Higher cortical function - He is lethargic. He does not respond to commands. He is postictal. Cranial nerves are intact. Pupils are equal and reactive. Motor exam has no gross focal deficit, again generalized weakness. Reflexes are 2+, symmetric. IMAGING STUDIES: CT of the brain - encephalomalacia, left temporal lobe which is unchanged from previous study. Cervical spine CT scan is normal. LABORATORY DATA: White count is 11,300, hemoglobin 14.4, hematocrit 42.1%, platelet count 227,000. Sodium is 130, potassium 4.2, chloride 93, CO2 is 27.6, BUN 7, creatinine 0.84. GFR is 94. Glucose is 99. PT 10.7, INR 1.1, APTT 27.8. Phenytoin level 6.7. Tox screen positive for benzodiazepines, barbiturates. Phenobarb level 36.4. UA - pH is 8, specific gravity 1.008. IMPRESSION: Breakthrough seizure. RECOMMENDATION: I agree with raising the phenytoin. We will increase the maintenance Dilantin from 200 mg daily to 300 mg daily. Continue all other seizure meds without change. I would like to get an MRI of the brain as well as an EEG. Be Narayanan MD, PhD YELENA//jalen , 04:14 PM , 04:59 PM
[2017-09-22] MEDS ORDERED: PHENYTOIN SODIUM 100 MG CAP PO SCH (21:00)
[2017-09-22] MEDS ORDERED: BRIVARACETAM 200 MG PO SCH (21:00)
[2017-09-22] MEDS ORDERED: BRIVARACETAM 100 MG PO SCH (21:00)
[2017-09-22] MEDS: OXcarbazepine 600 MG TAB PO SCH (21:54)
[2017-09-22] MEDS: clonazePAM 0.5 MG TAB PO SCH (21:54)
[2017-09-22] MEDS: PHENYTOIN SODIUM 100 MG CAP PO SCH (21:54)
[2017-09-22] MEDS ORDERED: BRIVARACETAM 50 MG PO ONE (23:45)
[2017-09-22] MEDS: PHENobarbital 32.4 MG TAB PO SCH (23:54)
[2017-09-23] VITALS (9 sets, daily range): BP systolic 106–123; BP diastolic 63–67; PULSE 58–87; RESP 16–18; TEMP 97.2–99; O2SAT 92–98
[2017-09-23] MEDS: SODIUM CHLOR 0.9% 1000 ML INJ 1,000 ML IV SCH ×2 (04:20→16:54)
[2017-09-23] MEDS: OXcarbazepine 600 MG TAB PO SCH ×2 (08:26→21:18)
[2017-09-23] MEDS: BRIVARACETAM 50 MG PO SCH ×3 (08:27→21:16)
[2017-09-23] MEDS: PHENobarbital 32.4 MG TAB PO SCH ×2 (08:27→21:17)
[2017-09-23 08:30] LABS: AUTOMATED NEUTROPHIL # 3.3 TH/MM3 (1.8-7.7); BASOPHIL % 0.5 % (0.0-2.0); EOSINOPHIL # 0.2 TH/MM3 (0-0.4); EOSINOPHIL % 2.9 % (0.0-4.0); HEMATOCRIT 38.9 % (39.0-51.0); HEMOGLOBIN 13.5 GM/DL (13.0-17.0); LYMPH % 29.4 % (9.0-44.0); LYMPHOCYTE # 1.7 TH/MM3 (1.0-4.8); MEAN CELL VOLUME 91.8 FL (80.0-100.0); MEAN CORPUSCULAR HEMOGLOBIN 31.8 PG (27.0-34.0); MEAN CORPUSCULAR HGB CONC 34.7 % (32.0-36.0); MEAN PLATELET VOLUME 8.6 FL (7.0-11.0); MONO % 9.4 % (0.0-8.0); MONOCYTE # 0.5 TH/MM3 (0-0.9); NEUT % 57.8 % (16.0-70.0); PLATELET COUNT 178 TH/MM3 (150-450); RED BLOOD COUNT 4.24 MIL/MM3 (4.50-5.90); RED CELL DISTRIBUTION WIDTH 14.3 % (11.6-17.2); WHITE BLOOD COUNT 5.7 TH/MM3 (4.0-11.0)
[2017-09-23] MEDS ORDERED: BRIVARACETAM 100 MG PO SCH (09:00)
--- NOTE | 2017-09-23 09:01 | EKG ---
Date Performed: 09/22/2017 Time Performed: 12:17:26 PTAGE: 57 years EKG: Sinus rhythm WITH OCCASIONAL SUPRAVENTRICULAR PREMATURE COMPLEXES LOW QRS VOLTAGE ABNORMAL ECG PREVIOUS TRACING : 11/23/2016 05.05 Since the prior tracing, there has been no significant oshea DOCTOR: Bianka Hughes Interpretating Date/Time 09/23/2017 08:59:41
[2017-09-23 09:03] LABS: CALCIUM 8.4 MG/DL (8.5-10.1); CREATININE 0.54 MG/DL (0.60-1.30)
[2017-09-23 09:04] LABS: PHENYTOIN (DILANTIN) 14.3 MCG/ML (10.0-20.0)
--- NOTE | 2017-09-23 11:15 | HHI.PR ---
Subjective Remarks The patient appeared tired. He was able to work with physical therapy. He had no acute complaints. Discussed with the patient's mother. She stated that she had a bad experience with nursing this morning about medications. Objective Vitals Vital Signs Date Time Temp Pulse Resp B/P (MAP) Pulse Ox O2 Delivery O2 Flow Rate FiO2 09/23/17 10:57 92 21 09/23/17 08:00 98.1 66 18 119/63 (81) 92 09/23/17 04:00 97.2 62 18 107/67 (80) 98 09/23/17 00:00 98.2 58 18 106/67 (80) 93 09/22/17 23:15 70 09/22/17 20:52 97 Nasal Cannula 2.00 09/22/17 20:14 98.1 67 18 117/56 (76) 98 09/22/17 17:53 09/22/17 17:20 66 16 112/62 (79) 96 Nasal Cannula 2.00 09/22/17 14:09 86 18 144/70 (94) 95 Room Air 09/22/17 12:02 64 14 120/71 (87) 98 Nasal Cannula 2.00 I/O 09/22/17 09/22/17 09/22/17 09/23/17 09/23/17 09/23/17 07:00 15:00 23:00 07:00 15:00 23:00 Intake Total 1100 ml Balance 1100 ml Intake IV Total 1100 ml # Voids 3 Result Diagram: 09/23/17 0700 09/23/17 0700 Imaging Last Impressions Head CT 09/22/17 0000 Signed Impressions: Service Date/Time: September 13:32 - CONCLUSION: Marked encephalomalacia of the left temporal lobe unchanged from the previous study. No evidence of hemorrhage or edema. Blade Celaya MD Chest X-Ray 09/22/17 0000 Signed Impressions: Service Date/Time: September 12:05 - CONCLUSION: Left basilar atelectasis with no other evidence of acute process. Christofer Todd MD Cervical Spine CT 09/22/17 0000 Signed Impressions: Service Date/Time: September 13:32 - CONCLUSION: Normal examination. Blade Celaya MD Objective Remarks GENERAL: Well-nourished, well-developed male in no acute distress. HEENT: Normocephalic, atraumatic. Pupils equal, round and reactive. Extraocular movements intact. No scleral icterus. No injection or drainage. Oropharynx is clear. Mucous membranes are moist. CARDIOVASCULAR: Regular rate and rhythm without murmurs, gallops, or rubs. RESPIRATORY: Clear to auscultation. No wheezes, rales, or rhonchi. Breathing is non-labored. GASTROINTESTINAL: Abdomen soft, non-tender, nondistended. EXTREMITIES: No lower extremity edema. PSYCH: Calm. NEURO: Patient appears lethargic. Medications and IVs Current Medications Medications (Trade) Dose Ordered Sig/Ashley Route Start Time Stop Time Status Last Admin Sodium Chloride 1,000 ml @ 75 mls/hr [id number] IV 09/22/17 15:00 09/23/17 04:20 (Tylenol) 650 mg Q4H PRN PO 09/22/17 15:00 (KlonoPIN) 0.5 mg HS PO 09/22/17 21:00 09/22/17 21:54 (Trileptal) 300 mg DAILY@1500 PO 09/22/17 15:00 (Trileptal) 600 mg BID PO 09/22/17 21:00 09/23/17 08:26 (PHENobarbital) 32.4 mg HS PO 09/22/17 21:00 09/22/17 23:54 (PHENobarbital) 64.8 mg DAILY PO 09/23/17 09:00 09/23/17 08:27 (Ativan Inj) 2 mg Q10M PRN IV PUSH 09/22/17 15:15 (Dilantin) 300 mg HS PO 09/22/17 21:00 09/22/17 21:54 Patient Own Medication PT OWN MED: BRIVARACETAM(BRIVIACT... BID PO 09/23/17 09:00 09/23/17 08:47 A/P Problem List: (1) Seizure disorder ICD Code: G40.909 - Seizure disorder Status: Chronic (2) Breakthrough seizure ICD Code: G40.919 - Breakthrough seizure Status: Acute Assessment and Plan Seizures Patient has had 3 witnessed seizures 09/22. He had apparently gone an extended period of time since his previous seizure following a medication change done by his neurologist in [place]. He did reportedly fall 3/1 and apparently hit his head. Head CT shows no acute changes. Neurology consult appreciated. - Neuro checks. - Seizure precautions. - Ativan as needed for seizure activity. - antiepileptics per neurology. - EEG ordered. - PT. The patient will need home health care at discharge. Mild hyponatremia Resolved with IV fluids. - Monitor labs. Leukocytosis Likely a stress reaction. - resolved. DVT prophylaxis: TONEY Villasenor Discharge Planning Discharge when cleared by neurology Deondre Celestin DO Sep 23, 2017 11:15
[2017-09-23] MEDS: OXcarbazepine 300 MG TAB PO SCH (13:36)
--- NOTE | 2017-09-23 18:44 | HHI.PR ---
Review/Management Diagnosis recurrent sz--stable Plan continue current anticonvulsant doses ok from neurology standpoint to dc home tomorrow if stable and no more sz. Please have him follow up with me in 2 weeks as outpatient Diagnosis/Plan: Subjective Subjective Comments No acute events reported No headache No further sz. Active Medications Current Medications Medications (Trade) Dose Ordered Sig/Ashley Route Start Time Stop Time Status Last Admin Sodium Chloride 1,000 ml @ 75 mls/hr [id number] IV 09/22/17 15:00 09/23/17 16:54 (Tylenol) 650 mg Q4H PRN PO 09/22/17 15:00 (KlonoPIN) 0.5 mg HS PO 09/22/17 21:00 09/22/17 21:54 (Trileptal) 300 mg DAILY@1500 PO 09/22/17 15:00 09/23/17 13:36 (Trileptal) 600 mg BID PO 09/22/17 21:00 09/23/17 08:26 (PHENobarbital) 32.4 mg HS PO 09/22/17 21:00 09/22/17 23:54 (PHENobarbital) 64.8 mg DAILY PO 09/23/17 09:00 09/23/17 08:27 (Ativan Inj) 2 mg Q10M PRN IV PUSH 09/22/17 15:15 (Dilantin) 300 mg HS PO 09/22/17 21:00 09/22/17 21:54 Patient Own Medication PT OWN MED: BRIVARACETAM(BRIVIACT... BID PO 09/23/17 09:00 09/23/17 08:47 Allergies Allergies Coded Allergies divalproex sodium (Unverified Allergy, Severe, 09/22/17) MRI PRECAUTION (Verified Adverse Reaction, Unknown, 09/22/17) Uncoded Allergies ANTIHISTAMINE ( Allergy, Severe, 03/08/17) THERAFLU ( Allergy, Severe, Seizures, 12/10/11) Exam I&O / VS Vital Signs Date Time Temp Pulse Resp B/P (MAP) Pulse Ox O2 Delivery O2 Flow Rate FiO2 09/23/17 16:00 73 09/23/17 12:05 63 09/23/17 12:00 97.7 65 18 115/64 (81) 94 09/23/17 10:57 92 21 09/23/17 08:00 98.1 66 18 119/63 (81) 92 09/23/17 04:00 97.2 62 18 107/67 (80) 98 09/23/17 00:00 98.2 58 18 106/67 (80) 93 09/22/17 23:15 70 09/22/17 20:52 97 Nasal Cannula 2.00 09/22/17 20:14 98.1 67 18 117/56 (76) 98 Exam Comments lethargic but easy to arouse and follows complex commands cn intact motor 4/5 BUE and BLE Objective Micro and Labs Laboratory Tests Test 09/23/17 07:00 White Blood Count 5.7 Red Blood Count 4.24 Hemoglobin 13.5 Hematocrit 38.9 Mean Corpuscular Volume 91.8 Mean Corpuscular Hemoglobin 31.8 Mean Corpuscular Hemoglobin Concent 34.7 Red Cell Distribution Width 14.3 Platelet Count 178 Mean Platelet Volume 8.6 Neutrophils (%) (Auto) 57.8 Lymphocytes (%) (Auto) 29.4 Monocytes (%) (Auto) 9.4 Eosinophils (%) (Auto) 2.9 Basophils (%) (Auto) 0.5 Neutrophils # (Auto) 3.3 Lymphocytes # (Auto) 1.7 Monocytes # (Auto) 0.5 Eosinophils # (Auto) 0.2 Basophils # (Auto) 0.0 CBC Comment DIFF FINAL Differential Comment Blood Urea Nitrogen 7 Creatinine 0.54 Random Glucose 75 Calcium Level 8.4 Sodium Level 136 Potassium Level 3.9 Chloride Level 102 Carbon Dioxide Level 26.0 Anion Gap 8 Estimat Glomerular Filtration Rate 156 Phenytoin (Dilantin) Level 14.3 Be Narayanan MD PhD Sep 23, 2017 18:44
--- NOTE | 2017-09-23 19:22 | MG ---
cc: Melissa Pimentel MD EEG #: [id number] REFERRING PHYSICIAN: ROOM: [facility] Photic awake, drowsy, sleep study. EEG 03/24/2015 showed some sharps left frontal and encephalopathy. CT shows encephalopathy left temporal lobe unchanged. Found on the floor by his mother while trying to go to the bathroom. He has a history of epilepsy, vagus nerve stimulator, developmental delay, on phenobarbital, Dilantin, clonazepam and Trileptal. DESCRIPTION OF RECORD: The patient has some overall slowing 5-6 Hz EKG looks sinus. A lot of movement artifact, but overall some mild slowing. Photic stimulation does elicit a driving response. No appreciable epileptiform features. IMPRESSION: Some mild background slowing consistent with encephalopathy versus the patient's known history of developmental delay versus medicine effect. No epileptiform features. Melissa Pimentel MD DF/cc , 05:17 PM , 07:20 PM
[2017-09-23] MEDS: clonazePAM 0.5 MG TAB PO SCH (21:17)
[2017-09-23] MEDS: PHENYTOIN SODIUM 100 MG CAP PO SCH (21:19)
[2017-09-24] VITALS (7 sets, daily range): BP systolic 111–133; BP diastolic 62–78; PULSE 59–72; RESP 16–18; TEMP 97.5–98.1; O2SAT 92–97
[2017-09-24] MEDS: SODIUM CHLOR 0.9% 1000 ML INJ 1,000 ML IV SCH ×2 (07:00→20:20)
[2017-09-24] MEDS: PHENobarbital 32.4 MG TAB PO SCH ×2 (08:05→20:29)
[2017-09-24] MEDS: BRIVARACETAM 50 MG PO SCH ×2 (08:05→20:31)
[2017-09-24] MEDS: OXcarbazepine 600 MG TAB PO SCH ×2 (08:20→20:29)
--- NOTE | 2017-09-24 12:29 | HHI.PR ---
Subjective Remarks The patient was resting comfortably in bed. Nursing reports that the patient almost fell down earlier. The patient's mother requests an extra day in the hospital before taking the patient home. Objective Vitals Vital Signs Date Time Temp Pulse Resp B/P (MAP) Pulse Ox O2 Delivery O2 Flow Rate FiO2 09/24/17 12:00 98.0 66 18 111/67 (82) 97 09/24/17 08:00 98.1 70 18 133/78 (96) 96 09/24/17 04:00 97.5 65 16 112/70 (84) 94 09/24/17 00:00 97.6 72 16 121/66 (84) 92 09/23/17 23:00 71 09/23/17 20:00 87 09/23/17 20:00 99.0 64 16 123/66 (85) 94 09/23/17 16:00 73 I/O 09/23/17 09/23/17 09/23/17 09/24/17 09/24/17 09/24/17 07:00 15:00 23:00 07:00 15:00 23:00 Intake Total 200 ml Balance 200 ml Intake Oral 200 ml # Voids 3 3 Result Diagram: 09/23/17 0700 09/23/17 0700 Imaging Last Impressions Head CT 09/22/17 0000 Signed Impressions: Service Date/Time: September 13:32 - CONCLUSION: Marked encephalomalacia of the left temporal lobe unchanged from the previous study. No evidence of hemorrhage or edema. Blade Celaya MD Chest X-Ray 09/22/17 0000 Signed Impressions: Service Date/Time: September 12:05 - CONCLUSION: Left basilar atelectasis with no other evidence of acute process. Christofer Todd MD Cervical Spine CT 09/22/17 0000 Signed Impressions: Service Date/Time: September 13:32 - CONCLUSION: Normal examination. Blade Celaya MD Objective Remarks GENERAL: Well-nourished, well-developed male in no acute distress. HEENT: Normocephalic, atraumatic. Pupils equal, round and reactive. Extraocular movements intact. No scleral icterus. No injection or drainage. Oropharynx is clear. Mucous membranes are moist. CARDIOVASCULAR: Regular rate and rhythm without murmurs, gallops, or rubs. RESPIRATORY: Clear to auscultation. No wheezes, rales, or rhonchi. Breathing is non-labored. GASTROINTESTINAL: Abdomen soft, non-tender, nondistended. EXTREMITIES: No lower extremity edema. PSYCH: Calm. NEURO: Moving extremities spontaneously. Medications and IVs Current Medications Medications (Trade) Dose Ordered Sig/Ashley Route Start Time Stop Time Status Last Admin Sodium Chloride 1,000 ml @ 75 mls/hr [id number] IV 09/22/17 15:00 09/23/17 16:54 (Tylenol) 650 mg Q4H PRN PO 09/22/17 15:00 (KlonoPIN) 0.5 mg HS PO 09/22/17 21:00 09/23/17 21:17 (Trileptal) 300 mg DAILY@1500 PO 09/22/17 15:00 09/23/17 13:36 (Trileptal) 600 mg BID PO 09/22/17 21:00 09/24/17 08:20 (PHENobarbital) 32.4 mg HS PO 09/22/17 21:00 09/23/17 21:17 (PHENobarbital) 64.8 mg DAILY PO 09/23/17 09:00 09/24/17 08:05 (Ativan Inj) 2 mg Q10M PRN IV PUSH 09/22/17 15:15 (Dilantin) 300 mg HS PO 09/22/17 21:00 09/23/17 21:19 Patient Own Medication PT OWN MED: BRIVARACETAM(BRIVIACT... BID PO 09/23/17 09:00 09/24/17 08:05 A/P Problem List: (1) Seizure disorder ICD Code: G40.909 - Seizure disorder Status: Chronic (2) Breakthrough seizure ICD Code: G40.919 - Breakthrough seizure Status: Acute Assessment and Plan Seizures Patient has had 3 witnessed seizures 09/22. He had apparently gone an extended period of time since his previous seizure following a medication change done by his neurologist in [place]. He did reportedly fall 09/22 and apparently hit his head. Head CT shows no acute changes. Neurology consult appreciated. EEG without seizure activity. - Neuro checks. - Seizure precautions. - Ativan as needed for seizure activity. - antiepileptics per neurology. - PT/ OT. The patient will need home health care at discharge. Mild hyponatremia Resolved with IV fluids. - Monitor labs. Leukocytosis Likely a stress reaction. - resolved. DVT prophylaxis: TONEY Villasenor Discharge Planning Anticipate d/c home with [facility] in AM if more stable Deondre Celestin DO Sep 24, 2017 12:29
--- NOTE | 2017-09-24 12:29 | HHI.DCPOC ---
Discharge Care Plan Diagnosis: (1) Breakthrough seizure (2) Seizure disorder (3) Epilepsy (4) Fall with injury Goals to Promote Your Health * To prevent worsening of your condition and complications * To maintain your health at the optimal level Directions to Meet Your Goals Take your medications as prescribed Follow your dietary instruction Follow activity as directed Keep your appointments as scheduled Take your immunizations and boosters as scheduled If your symptoms worsen call your PCP, if no PCP go to Urgent Care Center or Emergency Room Smoking is Dangerous to Your Health. Avoid second hand smoke Call the 24-hour hour crisis hotline for domestic abuse at Deondre Celestin DO Sep 24, 2017 12:29
--- NOTE | 2017-09-24 12:30 | HHI.FF ---
Face to Face Verification Diagnosis: (1) Fall with injury (2) Epilepsy (3) Breakthrough seizure (4) Seizure disorder Physical Therapy Order: Evaluate and Treat, Improve ambulation, Strength and gait training Occupational Therapy Order: Evaluate and Treat, Improve ADL, Gross motor coordination, Fine motor coordination Home Health Nursing Order: Medical education Signs/symptoms of disease process Medication education-adverse effect Nursing assessment with vital signs I have seen patient Emmett Hooks on 09/24/17. My clinical findings support the need for the requested home health care services because: Deconditioned w/ increased weakness Med compliance is questionable Limited ability to care for self Need for psychosocial assistance Impaired cognition/judgement High risk of falls I certify that my clinical findings support that this patient is homebound because: Impaired cognitive ability/safety Unsteady gait/balance Unsafe to leave home unassisted Need for psychosocial assistance Deondre Celestin DO Sep 24, 2017 12:30
[2017-09-24] MEDS: OXcarbazepine 300 MG TAB PO SCH (15:31)
[2017-09-24] MEDS: clonazePAM 0.5 MG TAB PO SCH (20:29)
[2017-09-24] MEDS: PHENYTOIN SODIUM 100 MG CAP PO SCH (20:30)
[2017-09-25] VITALS (9 sets, daily range): BP systolic 107–133; BP diastolic 60–76; PULSE 56–116; RESP 18; TEMP 97.3–98.1; O2SAT 93–96
[2017-09-25] MEDS: PHENobarbital 32.4 MG TAB PO SCH ×2 (08:26→20:40)
[2017-09-25] MEDS: BRIVARACETAM 50 MG PO SCH ×2 (08:28→20:39)
[2017-09-25] MEDS: OXcarbazepine 600 MG TAB PO SCH ×2 (08:30→20:40)
[2017-09-25] MEDS: SODIUM CHLOR 0.9% 1000 ML INJ 1,000 ML IV SCH ×2 (09:49→20:40)
--- NOTE | 2017-09-25 12:12 | HHI.PR ---
Subjective Remarks The patient was watching TV. He denied further seizure activity. He wondered how long he would have to stay in the hospital. Discussed with nursing. Objective Vitals Vital Signs Date Time Temp Pulse Resp B/P (MAP) Pulse Ox O2 Delivery O2 Flow Rate FiO2 09/25/17 10:24 56 09/25/17 08:00 97.8 64 18 124/76 (92) 94 09/25/17 05:07 98.1 65 18 132/75 (94) 96 09/25/17 00:49 97.3 61 18 107/66 (80) 94 09/25/17 00:04 64 09/24/17 20:02 98.1 62 18 119/73 (88) 95 09/24/17 16:43 59 09/24/17 16:00 98.1 68 18 116/62 (80) 95 I/O 09/24/17 09/24/17 09/24/17 09/25/17 09/25/17 09/25/17 07:00 15:00 23:00 07:00 15:00 23:00 Intake Total 200 ml Output Total 200 ml Balance 200 ml -200 ml Intake Oral 200 ml Output Urine Total 200 ml # Voids 3 1 # Bowel Movements 1 Result Diagram: 09/23/17 0700 09/23/17 0700 Imaging Last Impressions Head CT 09/22/17 0000 Signed Impressions: Service Date/Time: September 13:32 - CONCLUSION: Marked encephalomalacia of the left temporal lobe unchanged from the previous study. No evidence of hemorrhage or edema. Blade Celaya MD Chest X-Ray 09/22/17 Signed Impressions: Service Date/Time: September 12:05 - CONCLUSION: Left basilar atelectasis with no other evidence of acute process. Christofer Todd MD Cervical Spine CT 09/22/17 0000 Signed Impressions: Service Date/Time: September 13:32 - CONCLUSION: Normal examination. Blade Celaya MD Objective Remarks GENERAL: Well-nourished, well-developed male in no acute distress. HEENT: Normocephalic, atraumatic. Pupils equal, round and reactive. Extraocular movements intact. No scleral icterus. No injection or drainage. Oropharynx is clear. Mucous membranes are moist. CARDIOVASCULAR: Regular rate and rhythm without murmurs, gallops, or rubs. RESPIRATORY: Clear to auscultation. No wheezes, rales, or rhonchi. Breathing is non-labored. GASTROINTESTINAL: Abdomen soft, non-tender, nondistended. +BS. EXTREMITIES: No lower extremity edema. NEURO: Moving extremities spontaneously. Slow speech. PSYCH: Calm. Medications and IVs Current Medications Medications (Trade) Dose Ordered Sig/Ashley Route Start Time Stop Time Status Last Admin Sodium Chloride 1,000 ml @ 75 mls/hr [id number] IV 09/22/17 15:00 09/23/17 16:54 (Tylenol) 650 mg Q4H PRN PO 09/22/17 15:00 (KlonoPIN) 0.5 mg HS PO 09/22/17 21:00 09/24/17 20:29 (Trileptal) 300 mg DAILY@1500 PO 09/22/17 15:00 09/24/17 15:31 (Trileptal) 600 mg BID PO 09/22/17 21:00 09/25/17 08:30 (PHENobarbital) 32.4 mg HS PO 09/22/17 21:00 09/24/17 20:29 (PHENobarbital) 64.8 mg DAILY PO 09/23/17 09:00 09/25/17 08:26 (Ativan Inj) 2 mg Q10M PRN IV PUSH 09/22/17 15:15 (Dilantin) 300 mg HS PO 09/22/17 21:00 09/24/17 20:30 Patient Own Medication PT OWN MED: BRIVARACETAM(BRIVIACT... BID PO 09/23/17 09:00 09/25/17 08:28 A/P Problem List: (1) Seizure disorder ICD Code: G40.909 - Seizure disorder Status: Chronic (2) Breakthrough seizure ICD Code: G40.919 - Breakthrough seizure Status: Acute Assessment and Plan Seizures Patient has had 3 witnessed seizures 09/22. He had apparently gone an extended period of time since his previous seizure following a medication change done by his neurologist in [place]. He did reportedly fall 09/22 and apparently hit his head. Head CT shows no acute changes. Neurology consult appreciated. EEG without seizure activity. - Neuro checks. - Seizure precautions. - Ativan as needed for seizure activity. - antiepileptics per neurology. - PT/ OT. The patient will need home health care at discharge. His mother is currently in the hospital and unable to care for him so discharge was held. Mild hyponatremia Resolved with IV fluids. - Monitor labs as needed. Leukocytosis Likely a stress reaction. - resolved. DVT prophylaxis: TONEY Villasenor Discharge Planning Anticipate d/c home with [facility] when able Deondre Celestin DO Sep 25, 2017 12:12
[2017-09-25] MEDS: OXcarbazepine 300 MG TAB PO SCH (15:11)
[2017-09-25] MEDS: PHENYTOIN SODIUM 100 MG CAP PO SCH (20:40)
[2017-09-25] MEDS: clonazePAM 0.5 MG TAB PO SCH (20:40)
[2017-09-26 00:18] VITALS: BP 127/70; PULSE 57; RESP 18; TEMP 98.2; O2SAT 94
[2017-09-26 05:28] VITALS: BP 113/68; PULSE 57; RESP 18; TEMP 97.3; O2SAT 94
[2017-09-26 08:55] VITALS: BP 125/63; PULSE 60; RESP 16; TEMP 98.2; O2SAT 93
[2017-09-26] MEDS: BRIVARACETAM 50 MG PO SCH (09:39)
[2017-09-26] MEDS: OXcarbazepine 600 MG TAB PO SCH (09:39)
[2017-09-26] MEDS: PHENobarbital 32.4 MG TAB PO SCH (09:40)
[2017-09-26 10:08] VITALS: PULSE 56
--- NOTE | 2017-09-26 11:18 | HHI.FF ---
Face to Face Verification Diagnosis: (1) Fall with injury (2) Epilepsy (3) Breakthrough seizure (4) Seizure disorder Physical Therapy Order: Evaluate and Treat, Improve ambulation, Strength and gait training Occupational Therapy Order: Evaluate and Treat, Improve ADL, Gross motor coordination, Fine motor coordination Home Health Nursing Order: Medical education Signs/symptoms of disease process Medication education-adverse effect Nursing assessment with vital signs Administrative Personal Assistant Order: To Evaluate: Living conditions/environment, Support services Order: To Provide: Long range planning, Community services I have seen patient Emmett Hooks on 09/26/17. My clinical findings support the need for the requested home health care services because: Ltd mobility - disease progression Deconditioned w/ increased weakness Med compliance is questionable Limited ability to care for self Need for psychosocial assistance High risk of falls I certify that my clinical findings support that this patient is homebound because: Impaired cognitive ability/safety Unsteady gait/balance Unsafe to leave home unassisted Need for psychosocial assistance Deondre Celestin DO Sep 26, 2017 11:18
[2017-09-26] MEDS ORDERED: DILA100C PO (11:45)
--- NOTE | 2017-09-26 11:51 | HHI.DS ---
Discharge Summary Admission Date Sep 22, 2017 at 14:22 Discharge Date: Sep 26, 2017 Admitting Diagnosis epilepsy (1) Seizure disorder ICD Code: G40.909 - Seizure disorder Diagnosis: Principal Status: Chronic (2) Breakthrough seizure ICD Code: G40.919 - Breakthrough seizure Diagnosis: Principal Status: Acute Procedures None Brief History - From Admission The patient is a 57-year-old male with known history of seizure disorder who was brought to the emergency department today following a seizure at home. The patient is sedated and unable to provide any history. His mother is at bedside and provides history. She states that this morning she went to give him his normal medications and found him lying on the floor. She believes that he tried to get up at night to go to the bathroom, for which he usually requires assistance. He apparently hit his head, as there is a red pacheco on his forehead. His mother believes that this happened in the ambulance or possibly in the ER, however nursing states that this was present upon his arrival in the ER. Per the patient's mother, who he lives with, the patient has not had any recent illnesses. He has not had any cough, dyspnea, nausea, vomiting, diarrhea. He sees a local neurologist and a neurologist in [place]. Apparently he was put on a different medication in [place] and has not had any seizures since that time. He had 2 more witnessed seizures since arrival in the ER. He has been given Ativan and is now sedated. CBC/BMP: 09/23/17 0700 09/23/17 0700 Imaging Last Impressions Head CT 09/22/17 0000 Signed Impressions: Service Date/Time: September 13:32 - CONCLUSION: Marked encephalomalacia of the left temporal lobe unchanged from the previous study. No evidence of hemorrhage or edema. Blade Celaya MD Chest X-Ray 09/22/17 0000 Signed Impressions: Service Date/Time: September 12:05 - CONCLUSION: Left basilar atelectasis with no other evidence of acute process. Christofer Todd MD Cervical Spine CT 09/22/17 0000 Signed Impressions: Service Date/Time: September 13:32 - CONCLUSION: Normal examination. Blade Celaya MD PE at Discharge GENERAL: Well-nourished, well-developed male in no acute distress. HEENT: Normocephalic, atraumatic. Pupils equal, round and reactive. Extraocular movements intact. No scleral icterus. No injection or drainage. Oropharynx is clear. Mucous membranes are moist. CARDIOVASCULAR: Regular rate and rhythm without murmurs, gallops, or rubs. RESPIRATORY: Clear to auscultation. No wheezes, rales, or rhonchi. Breathing is non-labored. GASTROINTESTINAL: Abdomen soft, non-tender, nondistended. +BS. EXTREMITIES: No lower extremity edema. NEURO: Moving extremities spontaneously. Slow speech. PSYCH: Calm. Pt update on day of discharge The patient was resting in bed comfortably. His mother was at the bedside and questions were answered. The patient had no acute complaints. Discussed with nursing. Hospital Course Seizures The patient has had 3 witnessed seizures on 09/22. He had apparently gone an extended period of time since his previous seizure following a medication change done by his neurologist in [place]. He did reportedly fall 09/22 and apparently hit his head. Head CT shows no acute changes. He received IVFs and IV Dilantin in the ED. Neurology was consulted. EEG without seizure activity. He was placed on neuro checks and seizure precautions. He received Ativan as needed for seizure activity. Antiepileptics were continued per neurology. His home Dilantin dose was increased. The pt worked with PT/ OT. The patient will need home health care at discharge, which was arranged by case management. He will follow up with neurology as an outpt. Pt Condition on Discharge: Stable Discharge Disposition: Disch w/ Home Health Serv Discharge Time: <= 30 minutes Discharge Instructions DIET: Follow Instructions for: As Tolerated, No Restrictions Activities you can perform: Weight Bearing as Arnaud Follow up Referrals: Neurology - 2 Weeks with Be Narayanan MD PhD PCP Follow-up - 1 Week New Medications: Phenytoin Extended (Dilantin) 100 Mg Cap 300 MG PO HS for Seizure Control, #30 CAP Continued Medications: Brivaracetam (Briviact) 100 Mg Tab 200 MG PO BID Clonazepam (Clonazepam) 0.5 Mg Tab 0.5 MG PO HS, #60 TAB 0 Refills Oxcarbazepine (Trileptal) 600 Mg Tab 600 MG PO BID for Seizure Control, #60 TAB 0 Refills Oxcarbazepine (Trileptal) 300 Mg Tab 300 MG PO DAILY for Seizure Control, #30 TAB 0 Refills Phenobarbital (Phenobarbital) 64.8 Mg Tab 64.8 MG PO DAILY for Control Seizures, #30 TAB 0 Refills Phenobarbital (Phenobarbital) 32.4 Mg Tab 32.4 MG PO HS for Control Seizures, #30 TAB 0 Refills Discontinued Medications: Phenytoin Extended (Dilantin) 100 Mg Cap 100 MG PO HS for Control Seizures, #90 CAP 0 Refills Deondre Celestin DO Sep 26, 2017 11:51
== END 2017-09-26 14:12 | disposition home health service (06) | DRG 101 ==
LOC: NEPC 09:47 → NEDA 14:22 → N05B 18:09
PROVIDERS: ADMIT Hospitalist; ATTEND Hospitalist
DX: G40.409 Other generalized epilepsy and epileptic syndromes, not intractable, without status epilepticus (principal); E87.1 Hypo-osmolality and hyponatremia; D72.829 Elevated white blood cell count, unspecified; K21.9 Gastro-esophageal reflux disease without esophagitis; R62.50 Unspecified lack of expected normal physiological development in childhood; Z91.81 History of falling
CPT/HCPCS: 70450; 71045; 72125; 76937; 80048; 80183; 80184; 80185; 80307; 81001; 83735; 85025; 85610; 85730; 93005; 95819; J1165; J2060; J7030

== ENCOUNTER 2017-11-22 06:59 | Inpatient (IN) | payer MEDICARE, OTHER ==
[~2017-11-22] VITALS: Ht 175.3 cm; Wt 90.5 kg
[2017-11-22] VITALS (11 sets, daily range): BP systolic 113–135; BP diastolic 61–76; PULSE 57–75; RESP 12–20; TEMP 97.8–98.2; O2SAT 96–98
[~2017-11-22 06:59] MED LIST changes: -PHEN64.8 PO; -TOPI25 PO; +TRIL600T PO
[2017-11-22] MEDS ORDERED: SODIUM CHLOR 0.9% 1000 ML INJ 1,000 ML IV ONE (07:07)
--- NOTE | 2017-11-22 07:13 | PD ---
HPI Chief Complaint: Seizure Time Seen by Provider: 07:01 Travel History International Travel<30 days: No Contact w/Intl Traveler<30days: No Traveled to known affect area: No History of Present Illness HPI The patient is a 57-year-old male who presents to the emergency department via EMS after he was found on the ground by his mother. According to EMS the patient lives with his mother and has a history of seizures. The mother heard a sound when she came in to the bathroom the patient is laying on the ground. The patient does have a history of seizures for which he takes multiple medications. Upon arrival the patient is a somewhat limited historian, but is able to follow simple commands. He denies any headache, but does complain of low back pain. He denies any headache, neck pain, chest pain, shortness of breath, nausea, vomiting, or abdominal pain. However, patient is a somewhat limited historian. Symptoms are moderate. PFSH Past Medical History Arthritis: No Asthma: No Autoimmune Disease: No Blood Disorders: No Heart Rhythm Problems: No Cancer: No Cardiomyopathy: No Cardiovascular Problems: Yes High Cholesterol: No Chemotherapy: No Chest Pain: No Congestive Heart Failure: No COPD: No Cerebrovascular Accident: No Developmental Delay: Yes Diabetes: No Diminished Hearing: No Endocrine: No Gastrointestinal Disorders: No GERD: Yes Glaucoma: No Genitourinary: No Headaches: Yes Hepatitis: No Hiatal Hernia: No Hypertension: Yes Immune Disorder: No Implanted Vascular Access Dvce: Yes Kidney Stones: No Musculoskeletal: No Neurologic: Yes Psychiatric: No Reproductive: No Respiratory: Yes Immunizations Current: Yes Migraines: No Myocardial Infarction: No Radiation Therapy: No Renal Failure: No Seizures: Yes (EPILEPSY) Sleep Apnea: No Thyroid Disease: No Ulcer: No Menopausal: Yes Past Surgical History Abdominal Surgery: Yes (Appendectomy) AICD: No Appendectomy: Yes Body Medical Devices: SHIRAZ NERVE STIMULATOR Cardiac Surgery: No Ear Surgery: No Endocrine Surgery: No Eye Surgery: No Genitourinary Surgery: No Gynecologic Surgery: No Insulin Pump: No Joint Replacement: No Neurologic Surgery: Yes (IMPLANT - NERVE STIMULATOR) Oral Surgery: No Pacemaker: No Thoracic Surgery: No Other Surgery: Yes (skull fracture repair 1952 per mother) Social History Alcohol Use: No Tobacco Use: No Substance Use: No Allergies-Medications (Allergen,Severity, Reaction): Coded Allergies: divalproex sodium (Unverified Allergy, Severe, 09/22/17) MRI PRECAUTION (Verified Adverse Reaction, Unknown, 09/22/17) Patient has a vagal nerve stimulator. Unable to do MRI without information on implanted device. 09/22/2017 eg Uncoded Allergies: ANTIHISTAMINE (Allergy, Severe, 03/08/17) THERAFLU (Allergy, Severe, Seizures, 12/10/11) Reported Meds & Prescriptions Reported Meds & Active Scripts Active Reported Dilantin (Phenytoin Extended) 100 Mg Cap 200 Mg PO HS Phenobarbital 32.4 Mg Tab 32.4 Mg PO HS Phenobarbital 64.8 Mg Tab 64.8 Mg PO DAILY Trileptal (Oxcarbazepine) 300 Mg Tab 300 Mg PO DAILY Trileptal (Oxcarbazepine) 600 Mg Tab 600 Mg PO BID Briviact (Brivaracetam) 100 Mg Tab 200 Mg PO BID Clonazepam 0.5 Mg Tab 0.5 Mg PO HS Review of Systems Except as stated in HPI: all other systems reviewed are Neg HENT: No: Headaches, Neck Pain Cardiovascular: No: Chest Pain or Discomfort Respiratory: No: Shortness of Breath Gastrointestinal: No: Nausea, Vomiting, Abdominal Pain Genitourinary: Positive: Incontinence Musculoskeletal: Positive: Pain (Low back pain) Neurologic: Positive: Change in Mentation (According to EMS the patient is normally GCS of 15), Seizures Physical Exam Narrative GENERAL: Awake, somewhat lethargic 57-year-old male who appears his stated age and is in no acute respiratory distress. SKIN: Focused skin assessment warm/dry. HEAD: Contusions noted to the frontal forehead bilaterally. EYES: Pupils equal and round. 3 mm bilateral and reactive. ENT: No nasal bleeding or discharge. Mucous membranes pink and moist. NECK: Trachea midline. No JVD. CARDIOVASCULAR: Regular rate and rhythm. No murmur appreciated. RESPIRATORY: No accessory muscle use. Clear to auscultation. Breath sounds equal bilaterally. GASTROINTESTINAL: Abdomen soft, non-tender, nondistended. No rebound tenderness. Genitourinary: Uncircumcised phallus. No visible hematoma to the scrotum. Back: Tenderness noted along the midline of the mid lumbar region. No obvious deformity. MUSCULOSKELETAL: No obvious deformities. No clubbing. No cyanosis. No edema. NEUROLOGICAL: Awake, but lethargic. The patient is able to tell me his name and the year but not the current month. PSYCHIATRIC: Unable to assess. Data Data Last Documented VS Vital Signs Date Time Temp Pulse Resp B/P (MAP) Pulse Ox O2 Delivery O2 Flow Rate FiO2 11/22/17 07:07 Room Air 11/22/17 07:02 75 17 135/76 (95) 98 Orders Orders Complete Blood Count With Diff (11/22/17 07:07) Phenytoin (Dilantin) (11/22/17 07:07) Phenobarbital (11/22/17 07:07) Electrocardiogram (11/22/17 ) Ct Brain W/O Iv Contrast(Rout) (11/22/17 ) Blood Glucose (11/22/17 07:07) Ecg Monitoring (11/22/17 07:07) Iv Access Insert/Monitor (11/22/17 07:07) Oximetry (11/22/17 07:07) Comprehensive Metabolic Panel (11/22/17 07:07) Sodium Chlor 0.9% 1000 Ml Inj (Ns 1000 M (11/22/17 07:07) Sodium Chloride 0.9% Flush (Ns Flush) (11/22/17 07:15) Ct Lumb Spine W/O Contrast (11/22/17 ) Lactic Acid (11/22/17 07:07) Lorazepam Inj (Ativan Inj) (11/22/17 08:30) Fosphenytoin Inj (Cerebyx Inj) (11/22/17 08:30) Lorazepam Inj (Ativan Inj) (11/22/17 08:22) Admit Order (Ed Use Only) (11/22/17 10:04) Labs Laboratory Tests Test 11/22/17 07:17 White Blood Count 8.7 TH/MM3 Red Blood Count 4.40 MIL/MM3 Hemoglobin 14.6 GM/DL Hematocrit 40.4 % Mean Corpuscular Volume 91.8 FL Mean Corpuscular Hemoglobin 33.1 PG Mean Corpuscular Hemoglobin Concent 36.1 % Red Cell Distribution Width 14.0 % Platelet Count 233 TH/MM3 Mean Platelet Volume 8.1 FL Neutrophils (%) (Auto) 84.5 % Lymphocytes (%) (Auto) 8.7 % Monocytes (%) (Auto) 6.3 % Eosinophils (%) (Auto) 0.3 % Basophils (%) (Auto) 0.2 % Neutrophils # (Auto) 7.4 TH/MM3 Lymphocytes # (Auto) 0.8 TH/MM3 Monocytes # (Auto) 0.5 TH/MM3 Eosinophils # (Auto) 0.0 TH/MM3 Basophils # (Auto) 0.0 TH/MM3 CBC Comment AUTO DIFF Differential Comment AUTO DIFF CONFIRMED Blood Urea Nitrogen 8 MG/DL Creatinine 0.80 MG/DL Random Glucose 100 MG/DL Total Protein 8.4 GM/DL Albumin 3.8 GM/DL Calcium Level 8.7 MG/DL Alkaline Phosphatase 154 U/L Aspartate Amino Transf (AST/SGOT) 49 U/L Alanine Aminotransferase (ALT/SGPT) 28 U/L Total Bilirubin 0.3 MG/DL Sodium Level 130 MEQ/L Potassium Level 5.3 MEQ/L Chloride Level 96 MEQ/L Carbon Dioxide Level 24.4 MEQ/L Anion Gap 10 MEQ/L Estimat Glomerular Filtration Rate 99 ML/MIN Lactic Acid Level 3.0 mmol/L Phenytoin (Dilantin) Level 7.9 MCG/ML Phenobarbital Level 37.6 MCG/ML MDM Medical Decision Making Medical Screen Exam Complete: Yes Emergency Medical Condition: Yes Medical Record Reviewed: Yes Interpretation(s) EKG reveals sinus rhythm with occasional supraventricular premature complex. Low QRS voltage precordial leads. Last Impressions Lumbar Spine CT 11/22/17 0000 Signed Impressions: Service Date/Time: Wednesday, November 22, 2017 07:46 - CONCLUSION: 1. Suspected acute fracturing of the superior endplate of L3. There is a previous compression of only seen on the prior plain film but the defect appears to progressed since the prior plain film and now there appears to be areas of acute fracturing seen at the superior endplate. 2. Minimal anterior wedging of the superior plate of L1 and a suspected Schmorl's node at the superior aspect of L2 which are likely chronic. 3. Left lateral recess and left neural foramen disc protrusion at the L2-L3 level. Nathan Jackman MD Head CT 11/22/17 0000 Signed Impressions: Service Date/Time: Wednesday, November 22, 2017 07:43 - CONCLUSION: 1. Stable noncontrast head CT. No acute intracranial abnormality is identified. 2. Chronic changes include encephalomalacia in the left frontal lobe and left temporal lobe. Nathan Sanches MD Laboratory Tests Test 11/22/17 07:17 White Blood Count 8.7 TH/MM3 Red Blood Count 4.40 MIL/MM3 Hemoglobin 14.6 GM/DL Hematocrit 40.4 % Mean Corpuscular Volume 91.8 FL Mean Corpuscular Hemoglobin 33.1 PG Mean Corpuscular Hemoglobin Concent 36.1 % Red Cell Distribution Width 14.0 % Platelet Count 233 TH/MM3 Mean Platelet Volume 8.1 FL Neutrophils (%) (Auto) 84.5 % Lymphocytes (%) (Auto) 8.7 % Monocytes (%) (Auto) 6.3 % Eosinophils (%) (Auto) 0.3 % Basophils (%) (Auto) 0.2 % Neutrophils # (Auto) 7.4 TH/MM3 Lymphocytes # (Auto) 0.8 TH/MM3 Monocytes # (Auto) 0.5 TH/MM3 Eosinophils # (Auto) 0.0 TH/MM3 Basophils # (Auto) 0.0 TH/MM3 CBC Comment AUTO DIFF Differential Comment AUTO DIFF CONFIRMED Blood Urea Nitrogen 8 MG/DL Creatinine 0.80 MG/DL Random Glucose 100 MG/DL Total Protein 8.4 GM/DL Albumin 3.8 GM/DL Calcium Level 8.7 MG/DL Alkaline Phosphatase 154 U/L Aspartate Amino Transf (AST/SGOT) 49 U/L Alanine Aminotransferase (ALT/SGPT) 28 U/L Total Bilirubin 0.3 MG/DL Sodium Level 130 MEQ/L Potassium Level 5.3 MEQ/L Chloride Level 96 MEQ/L Carbon Dioxide Level 24.4 MEQ/L Anion Gap 10 MEQ/L Estimat Glomerular Filtration Rate 99 ML/MIN Lactic Acid Level 3.0 mmol/L Phenytoin (Dilantin) Level 7.9 MCG/ML Phenobarbital Level 37.6 MCG/ML Differential Diagnosis Differential diagnosis includes seizure, status epilepticus, subtherapeutic Dilantin level, subtherapeutic phenobarbital level, hyponatremia, intracranial hemorrhage, lumbar fracture, contusion, hematoma. Narrative Course IV was established, labs are drawn and sent, and the patient was placed on cardiac telemetry monitoring and continuous pulse oximetry monitoring. CT of the brain and lumbar spine were obtained. The patient was administered 1 L of IV fluids. CT the brain was negative. Patient's Dilantin level was subtherapeutic, 1 g of fosphenytoin was ordered. At approximately 8:25 AM the patient had a witnessed tonic-clonic seizure that lasted approximately 30 seconds. The patient was administered Ativan 1 g intravenously and a fosphenytoin was started. The patient has had multiple seizures this morning and has a history of recurrent seizures and status epilepticus. The patient does not have a local primary physician and is followed at [facility] in [place] for his seizures. He has seen locally by Dr. Be Narayanan. The patient has had multiple seizures this morning, will be admitted. Physician Communication Physician Communication The on-call medical service was paged for admission. I discussed the patient with the resident who agrees with admission to Dr. Hutchinson. Diagnosis Primary Impression: Seizure disorder Additional Impressions: Subtherapeutic serum dilantin level Breakthrough seizure Compression fracture of lumbar vertebra Qualified Codes: S32.030A - Wedge compression fracture of third lumbar vertebra, initial encounter for closed fracture Admitting Information Admitting Physician Requests: Admit Condition: Stable Erlin Heller MD November 22, 2017 07:12
[2017-11-22] MEDS ORDERED: SODIUM CHLORIDE 0.9% FLUSH 10 ML FLUSH IVF PRN (07:15)
[2017-11-22 07:35] LABS: AUTOMATED NEUTROPHIL # 7.4 TH/MM3 (1.8-7.7); BASOPHIL % 0.2 % (0.0-2.0); EOSINOPHIL % 0.3 % (0.0-4.0); HEMATOCRIT 40.4 % (39.0-51.0); HEMOGLOBIN 14.6 GM/DL (13.0-17.0); LYMPH % 8.7 % (9.0-44.0); LYMPHOCYTE # 0.8 TH/MM3 (1.0-4.8); MEAN CELL VOLUME 91.8 FL (80.0-100.0); MEAN CORPUSCULAR HEMOGLOBIN 33.1 PG (27.0-34.0); MEAN PLATELET VOLUME 8.1 FL (7.0-11.0); MONO % 6.3 % (0.0-8.0); MONOCYTE # 0.5 TH/MM3 (0-0.9); NEUT % 84.5 % (16.0-70.0); PLATELET COUNT 233 TH/MM3 (150-450); WHITE BLOOD COUNT 8.7 TH/MM3 (4.0-11.0)
[2017-11-22 07:42] LABS: MEAN CORPUSCULAR HGB CONC 36.1 % (32.0-36.0)
--- NOTE | 2017-11-22 08:04 | RADRPT ---
EXAM DATE/TIME: 11/22/2017 07:43 [facility] COMPARISON: CT BRAIN W/O CONTRAST, September 22, 2017, 13:32. INDICATIONS : Trauma. Possible seizure. Abrasions on forehead. RADIATION DOSE: 43.54 CTDIvol (mGy) MEDICAL HISTORY : Cardiovascular disease. Seizures. Hypertension. SURGICAL HISTORY : Appendectomy. ENCOUNTER: Initial ACUITY: 1 day PAIN SCALE: Non-responsive LOCATION: cranial TECHNIQUE: Multiple contiguous axial images were obtained of the head. Using automated exposure control and adj ustment of the mA and/or kV according to patient size, radiation dose was kept as low as reasonably a chievable to obtain optimal diagnostic quality images. DICOM format image data is available electro nically for review and comparison. FINDINGS: CEREBRUM: There is mild generalized atrophy. Ventricles are normal in size. Stable encephalomalacia is present within the left temporal lobe and left frontal lobe. No evidence of midline shift, mass lesion, hemo rrhage or acute infarction. No extra-axial fluid collections are seen. POSTERIOR FOSSA: The cerebellum and brainstem demonstrate no acute finding. There is cerebellar atrophy. The 4th vent ricle is midline. The cerebellopontine angle is unremarkable. EXTRACRANIAL: Visualized sinuses are clear. SKULL: The calvaria is intact. No evidence of skull fracture. CONCLUSION: 1. Stable noncontrast head CT. No acute intracranial abnormality is identified. 2. Chronic changes include encephalomalacia in the left frontal lobe and left temporal lobe. Nathan Sanches MD on November 22, 2017 at 8:00 Board Certified Radiologist. This report was verified electronically.
[2017-11-22 08:09] LABS: ALKALINE PHOSPHATASE 154 U/L (45-117); ALT (GPT) 28 U/L (12-78); PHENYTOIN (DILANTIN) 7.9 MCG/ML (10.0-20.0); TOTAL BILIRUBIN ADULT 0.3 MG/DL (0.2-1.0); TOTAL PROTEIN 8.4 GM/DL (6.4-8.2)
[2017-11-22 08:12] LABS: ALBUMIN 3.8 GM/DL (3.4-5.0); BICARBONATE 24.4 MEQ/L (21.0-32.0); BLOOD UREA NITROGEN 8 MG/DL (7-18); CALCIUM 8.7 MG/DL (8.5-10.1); CHLORIDE 96 MEQ/L (98-107); GLOMERULAR FILTRATION RATE 99 ML/MIN (>89); GLUCOSE,RANDOM 100 MG/DL (74-106); SODIUM (NA) 130 MEQ/L (136-145)
[2017-11-22 08:17] LABS: AST (GOT) 49 U/L (15-37)
[2017-11-22] MEDS ORDERED: LORazepam 2 MG/ML VIAL ONE (08:22)
[2017-11-22] MEDS ORDERED: FOSPHENYTOIN INJ 1,000 MGPE in SODIUM CHLORIDE 0.9% INJ 50 ML IV ONE (08:30)
[2017-11-22] MEDS ORDERED: LORazepam 2 MG/ML VIAL IV PUSH ONE (08:30)
--- NOTE | 2017-11-22 09:02 | RADRPT ---
EXAM DATE/TIME: 11/22/2017 07:46 [facility] COMPARISON: SPINE LUMBAR LTD (AP & LAT), May 29, 2017, 14:11. INDICATIONS : Trauma. Possible seizure. RADIATION DOSE: 37.85 CTDIvol (mGy) MEDICAL HISTORY : Cardiovascular disease. Seizures. Hypertension. SURGICAL HISTORY : Appendectomy. ENCOUNTER: Initial ACUITY: 1 day PAIN SCALE: Non-responsive LOCATION: Lumbar spine TECHNIQUE: Volumetric scanning of the lumbar spine was performed. Multiplanar reconstructions in the sagittal, coronal and oblique axial planes were performed. Using automated exposure control and adjustment of the mA and/or kV according to patient size, radiation dose was kept as low as reasonably achievable t o obtain optimal diagnostic quality images. DICOM format image data is available electronically for review and comparison. FINDINGS: VERTEBRAE: There is minimal anterior wedging at the superior aspect of L1. There is some concavity to the local delivery truck driver ior left lateral aspect of the superior endplate of L2. Significant loss of height overall at L2 is n ot seen. There is moderate anterior compression deformity at L3. This was present on prior film exami nation. However there appears to be a more acute fracture component involving the superior endplate o f L3. ALIGNMENT: No evidence of subluxation. T12-L1: The thecal sac has a normal diameter. No evidence of disc bulge or protrusion. The neural foramina are patent bilaterally. L1-L2: The thecal sac has a normal diameter. No evidence of disc bulge or protrusion. The neural foramina are patent bilaterally. L2-L3: Again noted are the suspected acute on chronic changes at the superior aspect of the L3 vertebral bod y. Overall the L3 vertebral body has lost half its original height anteriorly and at its midportion. The posterior aspect of the L3 vertebral body has maintained its height. There does appear to be a le ft lateral recess and left neural foraminal disc protrusion causing some narrowing of the left latera l recess and left neural foramina. The right neural foramina is patent. L3-L4: There is mild diffuse disc bulge. The neural foramina are patent bilaterally. L4-L5: The thecal sac has a normal diameter. No evidence of disc bulge or protrusion. The neural foramina are patent bilaterally. There is mild facet hypertrophy. L5-S1: The thecal sac has a normal diameter. No evidence of disc bulge or protrusion. The neural foramina are patent bilaterally. There is mild facet hypertrophy. CONCLUSION: 1. Suspected acute fracturing of the superior endplate of L3. There is a previous compression of only seen on the prior plain film but the defect appears to progressed since the prior plain film and now there appears to be areas of acute fracturing seen at the superior endplate. 2. Minimal anterior wedging of the superior plate of L1 and a suspected Schmorl's node at the superio r aspect of L2 which are likely chronic. 3. Left lateral recess and left neural foramen disc protrusion at the L2-L3 level. Nathan Jackman MD on November 22, 2017 at 8:49 Board Certified Radiologist. This report was verified electronically.
--- NOTE | 2017-11-22 10:05 | HHI.HP ---
HPI Service Family Medicine Primary Care Physician Unknown Admission Diagnosis Breakthrough seizure, subtherapeutic Dilantin level, L3 compression Diagnoses: International Travel<30 Days: No Contact w/Intl Traveler<30days: No Known Affected Area: No History of Present Illness 57 y/o w/hx of epilepsy and developmental delay presenting w/seizures. Patient' s mother is at bedside and provides limited history. Patient is a limited historian. Patient is first seizure at age 3. Since then, has had adjustments to his seizure medication and has implantable vagal stimulator placed 10 years ago. Patient had a fall injury secondary to seizure at the time and was reportedly paralyzed, but regained the ability to walk after extensive therapy. Patient follows with Dr. Narayanan and [facility] for management and treatment. About 8 months ago, patient fell after being off balance and was unable to walk, endorse pain in the lower back and the right lower abdomen since then. Has been using a walker or wheelchair to move around. Endorses pain with certain body positions or movements. Mom states that since then he has been having seizures once in a while. Before today, last seizure was a month ago. He has had no recent medication adjustment. Last night, Mom heard something from his room and saw him on the floor. Mom noticed two bumps on his head. Was altered, not able to converse. He then had a seizure with appearance of "his whole body shaking." The seizure lasted 2 minutes. No tongue biting, urination, or post ictal state was observed. By the time the patient was brought to the ED, he had another seizure lasting 2 minutes which was treated with Ativan his mother then called the ER. Mom has been administering medications daily to him and there has been complaints. No recent illnesses, flulike symptoms, fevers, diarrhea, nausea/ vomiting. (Brenda Abarca MD R1) History of Present Illness 57-year-old male with history of developmental delay and epilepsy presenting with breakthrough seizures. Patient is a poor historian and mother is able to provide a limited history. He is followed by Dr. Narayanan of neurology and [facility] for his seizure disorder and is on several seizure medications as listed below. He also has an implantable vagal stimulator activated by a magnet placed approximately 10 years ago. Per mother, patient had a fall secondary to a seizure this morning and was brought to the emergency department for further evaluation. While in the emergency department, he had a witnessed tonic-clonic seizure and was treated with Ativan 2 mg as well as loaded with fosphenytoin. His initial lab work showed a subtherapeutic phenytoin level. Mother states that he has been taking his home medications as prescribed (Fabian Hutchinson MD) Review of Systems Constitutional: DENIES: Fever, Weight loss Endocrine: DENIES: Polydipsia, Polyuria Eyes: DENIES: Eye pain, Vision loss Ears, nose, mouth, throat: DENIES: Throat pain, Running Nose Respiratory: DENIES: Cough, Shortness of breath Cardiovascular: DENIES: Chest pain, Lower Extremity Edema Gastrointestinal: DENIES: Constipation Genitourinary: DENIES: Urinary frequency, Hematuria Musculoskeletal: DENIES: Muscle aches Integumentary: DENIES: Abnormal pigmentation Hematologic/lymphatic: DENIES: Bruising Immunologic/allergic: DENIES: Eczema Neurologic: DENIES: Headache, Paresthesias (Brenda Abarca MD R1) Past Family Social History Past Medical History Epilepsy Developmental delay Past Surgical History Appendectomy "Plate in skull" (Brenda Abarca MD R1) Allergies: Coded Allergies: divalproex sodium (Unverified Allergy, Severe, 09/22/17) MRI PRECAUTION (Verified Adverse Reaction, Unknown, 09/22/17) Patient has a vagal nerve stimulator. Unable to do MRI without information on implanted device. 09/22/2017 eg Uncoded Allergies: ANTIHISTAMINE (Allergy, Severe, 03/08/17) THERAFLU (Allergy, Severe, Seizures, 12/10/11) Family History Mom: no seizures, no cancers Dad: no seizures Social History No smoking, ETOH, or illicit/recreational drugs Lives w/Mom at home. (Brenda Abarca MD R1) Physical Exam Vital Signs Vital Signs Date Time Temp Pulse Resp B/P (MAP) Pulse Ox O2 Delivery O2 Flow Rate FiO2 11/22/17 07:07 Room Air 11/22/17 07:02 75 17 135/76 (95) 98 Physical Exam GENERAL: This is a overweight, somnolent male resting quietly in bed. Is able to be aroused from sleep, but often falls asleep during exam. Able to follow commands, but not able to answer most questions. SKIN: Cool and dry. HEAD: Atraumatic. Normocephalic. 2 large lumps about 2 inches in diameter on either side of the forehead noted. EYES: Pupils equal round and reactive. Extraocular motions intact. ENT: Nose without bleeding, purulent drainage or septal hematoma. Throat without erythema, tonsillar hypertrophy or exudate. Uvula midline. Airway patent. NECK: Trachea midline CARDIOVASCULAR: Regular rate and rhythm without murmurs, gallops, or rubs. RESPIRATORY: Clear to auscultation. Breath sounds equal bilaterally. No wheezes , rales, or rhonchi. GASTROINTESTINAL: Abdomen soft, non-tender, nondistended. No hepato-splenomegaly , or palpable masses. No guarding. MUSCULOSKELETAL: Extremities without clubbing, cyanosis, or edema. No calf tenderness. Negative Homans sign bilaterally. NEUROLOGICAL: Patient is oriented to year only. Not able to answer further questions but able to affirm sensations. Cranial nerves II through XII intact. Motor and sensory grossly within normal limits (sensation to touch and vibration intact) at the upper and lower extremities. 4 out of 5 muscle strength in all muscle groups. No abnormality seen on cerebellar testing ( finger to nose testing). Reflexes not obtainable. Laboratory Laboratory Tests Test 11/22/17 07:17 White Blood Count 8.7 Red Blood Count 4.40 Hemoglobin 14.6 Hematocrit 40.4 Mean Corpuscular Volume 91.8 Mean Corpuscular Hemoglobin 33.1 Mean Corpuscular Hemoglobin Concent 36.1 Red Cell Distribution Width 14.0 Platelet Count 233 Mean Platelet Volume 8.1 Neutrophils (%) (Auto) 84.5 Lymphocytes (%) (Auto) 8.7 Monocytes (%) (Auto) 6.3 Eosinophils (%) (Auto) 0.3 Basophils (%) (Auto) 0.2 Neutrophils # (Auto) 7.4 Lymphocytes # (Auto) 0.8 Monocytes # (Auto) 0.5 Eosinophils # (Auto) 0.0 Basophils # (Auto) 0.0 CBC Comment AUTO DIFF Differential Comment AUTO DIFF CONFIRMED Blood Urea Nitrogen 8 Creatinine 0.80 Random Glucose 100 Total Protein 8.4 Albumin 3.8 Calcium Level 8.7 Alkaline Phosphatase 154 Aspartate Amino Transf (AST/SGOT) 49 Alanine Aminotransferase (ALT/SGPT) 28 Total Bilirubin 0.3 Sodium Level 130 Potassium Level 5.3 Chloride Level 96 Carbon Dioxide Level 24.4 Anion Gap 10 Estimat Glomerular Filtration Rate 99 Lactic Acid Level 3.0 Phenytoin (Dilantin) Level 7.9 Phenobarbital Level 37.6 (Brenda Abarca MD R1) Physical Exam General: Overweight male, lying in bed in no obvious distress. Smiling during exam and able to follow simple commands HEENT: 2 areas of ecchymosis on the forehead approximately 3-4 cm in size each. These areas are nontender with no palpable step-off. Pupils are equal, round , and reactive to light. Cranial nerves II through XII are intact. CV: Regular rate and rhythm without murmur Pulmonary: Clear to auscultation bilaterally (Fabian Hutchinson MD) Result Diagram: 11/22/17 0717 11/22/1717 Imaging Last Impressions Lumbar Spine CT 11/22/17 0000 Signed Impressions: Service Date/Time: Wednesday, November 22, 2017 07:46 - CONCLUSION: 1. Suspected acute fracturing of the superior endplate of L3. There is a previous compression of only seen on the prior plain film but the defect appears to progressed since the prior plain film and now there appears to be areas of acute fracturing seen at the superior endplate. 2. Minimal anterior wedging of the superior plate of L1 and a suspected Schmorl's node at the superior aspect of L2 which are likely chronic. 3. Left lateral recess and left neural foramen disc protrusion at the L2-L3 level. Nathan Jackman MD Head CT 11/22/17 0000 Signed Impressions: Service Date/Time: Wednesday, November 22, 2017 07:43 - CONCLUSION: 1. Stable noncontrast head CT. No acute intracranial abnormality is identified. 2. Chronic changes include encephalomalacia in the left frontal lobe and left temporal lobe. Nathan Sanches MD (Brenda Abarca MD R1) Capscottyi VTE Risk Assessment Capemperatriz VTE Risk Assessment: No/Low Risk (score <= 1) (Brenda Abarca MD R1) Assessment and Plan Assessment and Plan Patient is a 57-year-old male with a history of epilepsy (on 4 different medications) and developmental delay resenting with breakthrough seizure. Plan to consult neurology for medication management and order IV fluids, n.p.o. until bedside swallow study past,EEG, and seizure precautions while monitoring. Code Status Full Discussed Condition With Dr. Hutchinson (Brenda Abarca MD R1) Attending Attestation THIS CASE WAS DISCUSSED WITH THE RESIDENT PHYSICIANS. I HAVE REVIEWED THE RECORD AND AGREE WITH THE ABOVE NOTE AND PLAN OF CARE WAS DISCUSSED. I HAVE AUTHORIZED THE ORDER FOR ADMISSION TO AN IN-PATIENT STATUS. Patient was examined by myself after discussion with the resident physician and I have read the above H&P and reviewed this with the patient I was involved in all medical decision making for this patient and agree with the H&P as documented by the resident physician Fabian Hutchinson MD (Fabian Hutchinson MD) Problem List: (1) Seizure disorder ICD Codes: G40.909 - Seizure disorder Status: Acute Plan: Patient had seizures 2 today Was given Ativan 1 mg IV 1 Patient is postictal during physical exam. No neurologic deficits noted Patient is on 4 different seizure medications chronically: Trileptal 300 mg daily and 600 mg twice daily, phenobarbital 64.8 daily and 32.4 mg HS, Brivaracetam 100 mg p.o. twice daily, Dilantin [address] of the head shows encephalomalacia in the left frontal lobe and left temporal lobe, likely chronic Uncertain as to etiology, differential: Lifestyle change (poor sleep versus poor appetite versus pain) versus electrolyte imbalance versus viral encephalitis versus TIA/encephalomalacia Will assess tomorrow patient's sleep schedule and diet Phenobarbital, Dilantin, Trileptal level ordered. Dilantin level subtherapeutic Neurology consulted, appreciate recommendations on medication management: Home medications resumed, Dilantin dose increased (100 mg every morning and 200 mg q. at bedtime) Transfer to unit Seizure and fall precautions Neuro checks every 4 hours N.p.o. diet until bedside assessment past Respiratory pulse ox monitoring Neurology consulted, appreciate recommendations EEG ordered CPK check for rhabdomyolysis TSH, prolactin ordered to assess for other underlying etiologies Ativan 2 mg IV push ordered for every 15 minutes as needed seizures with a max dose of 2 Cardiac telemetry (2) Hyperkalemia ICD Codes: E87.5 - Hyperkalemia Plan: Potassium 5.3 on admission May be due to hemolysis We will recheck potassium level at 3 PM today Patient on cardiac telemetry and IV fluids (3) Epilepsy ICD Codes: G40.909 - Epilepsy, unspecified, not intractable, without status epilepticus Status: Acute Plan: See above plan (4) Compression fracture of lumbar vertebra ICD Codes: S32.000A - Wedge compression fracture of unspecified lumbar vertebra , initial encounter for closed fracture Status: Acute Plan: CT of the lumbar spine on admission show acute compression fracture of the superior endplate of L3. Left lateral recess and left neural foramen disc protrusion is seen at the L2-L3 level. Placed on bedrest Neurosurgery consulted Provide Tylenol 650 mg p.o. every 4H as needed for pain, consider tramadol for breakthrough option We will order physical therapy once patient is safe to resume physical activity (5) FEN Plan: Fluids: IV fluid maintenance Electrolytes: Recheck potassium for hyperkalemia. May consider adding calcium gluconate and/or bicarb to reduce levels if they remain elevated Nutrition: N.p.o. until bedside assessment, afterwards may be regular diet DVT prophylaxis: Not indicated at this time (Brenda Abarca MD R1) Physician Certification 2 Midnight Certification Type: Admission for Inpatient Services Order for Inpatient Services The services are ordered in accordance with Medicare regulations or non- Medicare payer requirements, as applicable. In the case of services not specified as inpatient-only, they are appropriately provided as inpatient services in accordance with the 2-midnight benchmark. Estimated LOS (days): 2 2 days is the estimated time the patient will need to remain in the hospital, assuming treatment plan goals are met and no additional complications. Post-Hospital Plan: Not yet determined (Brenda Abarca MD R1) Problem Qualifiers (1) Epilepsy: Qualified Codes: G40.919 - Epilepsy, unspecified, intractable, without status epilepticus (2) Compression fracture of lumbar vertebra: Qualified Codes: S32.030A - Wedge compression fracture of third lumbar vertebra , initial encounter for closed fracture Brenda Abarca MD R1 November 22, 2017 10:05 Fabian Hutchinson MD November 22, 2017 15:30
[2017-11-22] MEDS ORDERED: SENNOSIDES 8.6 MG TAB PO PRN (10:15)
[2017-11-22] MEDS ORDERED: NALOXONE HCL 0.4 MG/ML AMP IV PUSH PRN (10:15)
[2017-11-22] MEDS ORDERED: SODIUM CHLORIDE 0.9% FLUSH 10 ML FLUSH IV FLUSH PRN ×2 (10:15→11:00)
[2017-11-22] MEDS ORDERED: BISACODYL 10 MG SUPP RECTAL PRN (10:15)
[2017-11-22] MEDS ORDERED: MAGNESIUM HYDROXIDE SUSP 30 ML CUP PO PRN (10:15)
[2017-11-22] MEDS ORDERED: LACTULOSE SYRUP 20 GM/30 ML CUP PO PRN (10:15)
[2017-11-22] MEDS ORDERED: DILA100C PO (10:44)
[2017-11-22] MEDS ORDERED: ACETAMINOPHEN 325 MG TAB PO PRN (11:00)
[2017-11-22] MEDS ORDERED: LORazepam 2 MG/ML VIAL IV PUSH PRN (11:00)
[2017-11-22] MEDS: SODIUM CHLOR 0.9% 1000 ML INJ 1,000 ML IV SCH ×2 (11:59→20:15)
--- NOTE | 2017-11-22 12:47 | PD.CONS ---
History of Present Illness Service Neurology Consult Requested By Medical Team Reason for Consult Seizure Primary Care Physician Unknown History of Present Illness 57 y/o male with past hx of seizure disorder since childhood prevents for breakthrough seizure. Currently following in [facility] for his seizures. Seen every 2 months. Has implantable device for seizures though his mother is unsure what it is called. At 430 this morning she heard a noise in his room and found he had fallen. She reports that he hit his head. He then had a witnessed seizure in the ER. The last seizure was about a month ago. Seizures have been less frequent recently. At home he is on Dilantin, Trileptal, Briviact, and Phenobarb. She did not use the magnet after his seizure on the implantable device. (Sussy Lovelace) Review of Systems Constitutional: Negative, Negative except HPI Eye: Negative Except HPI ENMT: Negative except HPI Respiratory: Negative except HPI Cardiovascular: Negative except HPI Gastrointestinal: Negative except HPI Ralph/Lymph: Negative except HPI Musculoskeletal: Back pain Neurologic: Negative except HPI Psychiatric: Negative except HPI All other ROS: ROS reviewed as documented in chart (Sussy Lovelace) Past Family Social History Allergies: Coded Allergies: divalproex sodium (Unverified Allergy, Severe, 09/22/17) MRI PRECAUTION (Verified Adverse Reaction, Unknown, 09/22/17) Patient has a vagal nerve stimulator. Unable to do MRI without information on implanted device. 09/22/2017 eg Uncoded Allergies: ANTIHISTAMINE (Allergy, Severe, 03/08/17) THERAFLU (Allergy, Severe, Seizures, 12/10/11) Past Medical History seizure disorder, low back pain Past Surgical History implantable device placed for seizures Reported Medications home meds: Briviact 50mg 2 tabs bid Trileptal 300mg 2 tabs qam, 1 tab at lunch and 2 qhs Phenobarb 64.8mg 1 tab qam and 1/2 qhs Klonopin 0.5mg 1 po qhs Dilantin 100mg 2 tabs qhs Active Ordered Medications Current Medications Medications (Trade) Dose Ordered Sig/Ashley Route Start Time Stop Time Status Last Admin (NS Flush) 2 ml UNSCH PRN IV FLUSH 11/22/17 10:15 (NS Flush) 2 ml BID IV FLUSH 11/22/17 21:00 (Narcan Inj) 0.4 mg UNSCH PRN IV PUSH 11/22/17 10:15 (Milk Of Magnesia Liq) 30 ml Q12H PRN PO 11/22/17 10:15 (Senokot) 17.2 mg Q12H PRN PO 11/22/17 10:15 (Dulcolax Supp) 10 mg DAILY PRN RECTAL 11/22/17 10:15 (Lactulose Liq) 30 ml DAILY PRN PO 11/22/17 10:15 Sodium Chloride 1,000 ml @ 125 mls/hr Q8H IV 11/22/17 10:51 11/22/17 11:59 (Tylenol) 650 mg Q4H PRN PO 11/22/17 11:00 (Ativan Inj) 2 mg Q15M PRN IV PUSH 11/22/17 11:00 Family History noncontributory Social History lives with his mother who is his primary caregiver (Sussy Lovelace) Exam I&O / VS Vital Signs Date Time Temp Pulse Resp B/P (MAP) Pulse Ox O2 Delivery O2 Flow Rate FiO2 11/22/17 10:14 63 17 113/61 (78) 96 Room Air 11/22/17 07:07 Room Air 11/22/17 07:02 75 17 135/76 (95) 98 General: Alert and Oriented, No acute distress Eye: PERRL, EOMI Respiratory: Non-labored respirations Cardiology: Normal rate Psychiatric: Cooperative, Appropriate mood & affect Exam Comments EOMi, + pain with SLR on the right, no pain on the left, moving all extremities against gravity, f-n-f intact, coordination intact, no drift (Sussy Lovelace) Review/Management Diagnosis/Plan: (1) Seizure disorder ICD Codes: G40.909 - Seizure disorder Status: Acute Plan: resume home medications Briviact 100mg bid Trileptal 300mg 2 tabs qam, 1 at lunch and 2 qhs Phenobarb 64.8mg 1 qam and 1/2 qhs Klonopin 0.5mg 1 po qhs increase Dilantin to 100mg qam and 200 qhs if pharmacy unable to get Briviact use pt home meds (2) Subtherapeutic serum dilantin level ICD Codes: R78.89 - Finding of other specified substances, not normally found in blood Status: Acute Plan: will increase Dilantin to 100mg qam and 200mg qhs (3) Breakthrough seizure ICD Codes: G40.919 - Breakthrough seizure Status: Acute Plan: likely related to subtherapeutic dilantin level use magnetic on implantable device for aura or after seizure rule out toxic/metabolic cause (4) Compression fracture of lumbar vertebra ICD Codes: S32.000A - Wedge compression fracture of unspecified lumbar vertebra , initial encounter for closed fracture Status: Acute Plan: nsx eval (5) Epilepsy ICD Codes: G40.909 - Epilepsy, unspecified, not intractable, without status epilepticus Status: Acute (6) Hypertension ICD Codes: I10 - Essential (primary) hypertension Status: Chronic Plan: blood pressure control (Sussy Lovelace) Diagnosis/Plan: (1) Seizure disorder ICD Codes: G40.909 - Seizure disorder Status: Acute Plan: Intractable Epilepsy with breakthrough sz on 5 sz medications and with VNS resume home medications Briviact 100mg bid Trileptal 300mg 2 tabs qam, 1 at lunch and 2 qhs Phenobarb 64.8mg 1 qam and 1/2 qhs Klonopin 0.5mg 1 po qhs increase Dilantin to 100mg qam and 200 qhs iv ativan x 1 tonight f/u eeg tomorrow d/c planning once sz free outpatient f/u with Dr. Narayanan d/w pt/mother/[place]. agree with above (Fabian Vogt MD) Problem Qualifiers (1) Compression fracture of lumbar vertebra: Qualified Codes: S32.030A - Wedge compression fracture of third lumbar vertebra , initial encounter for closed fracture (2) Epilepsy: Qualified Codes: G40.919 - Epilepsy, unspecified, intractable, without status epilepticus Sussy Lovelace November 22, 2017 12:47 Fabian Vogt MD November 22, 2017 17:32
--- NOTE | 2017-11-22 13:45 | PD.CONS ---
(Tho Bradley MD) HPI Consult Requested By Primary Care Physician Unknown (Tho Bradley MD) Service Neurosurgery Consult Requested By Dr. Abarca Reason for Consult L3 fracture History of Present Illness Mr. Hooks is a 57-year-old male with history of seizures. Mr. Hooks has a history of epilepsy and developmental delay. He follows at [facility] for his seizure disorder. He has an implantable vagal stimulator. The patient has had several breakthrough seizures causing him to fall. He had complained of back pain a few weeks ago after one of his seizures. He was brought to [place] ED today due to recurrent uncontrolled seizures and had a witnessed tonic-clonic event. His labs showed a subtherapeutic phenytoin level. CT of the lumbar spine showed compression fracture of L3. Neurosurgical evaluation of lumbar fracture was requested. (Micki Vasquez) Review of Systems ROS Limitations: Clinical Condition (Micki Vasquez) Past Family Social History Allergies: Coded Allergies: divalproex sodium (Unverified Allergy, Severe, 09/22/17) MRI PRECAUTION (Verified Adverse Reaction, Unknown, 09/22/17) Patient has a vagal nerve stimulator. Unable to do MRI without information on implanted device. 09/22/2017 eg Uncoded Allergies: ANTIHISTAMINE (Allergy, Severe, 03/08/17) THERAFLU (Allergy, Severe, Seizures, 12/10/11) Past Medical History Epilepsy Developmental delay Past Surgical History Appendectomy Vagal Stimulator Reported Medications reviewed in EMR Active Ordered Medications Current Medications Medications (Trade) Dose Ordered Sig/Ashley Route PRN Reason Start Time Stop Time Status Last Admin Dose Admin Sodium Chloride (NS Flush) 2 ml UNSCH PRN IV FLUSH FLUSH AFTER USING IV ACCESS 11/22/17 10:15 Sodium Chloride (NS Flush) 2 ml BID IV FLUSH 11/22/17 21:00 Naloxone HCl (Narcan Inj) 0.4 mg UNSCH PRN IV PUSH SEE LABEL COMMENTS 11/22/17 10:15 Magnesium Hydroxide (Milk Of Magnesia Liq) 30 ml Q12H PRN PO Mild constipation 11/22/17 10:15 Sennosides (Senokot) 17.2 mg Q12H PRN PO Moderate constipation 11/22/17 10:15 Bisacodyl (Dulcolax Supp) 10 mg DAILY PRN RECTAL SEVERE CONSITIPATION 11/22/17 10:15 Lactulose (Lactulose Liq) 30 ml DAILY PRN PO SEVERE CONSITIPATION 11/22/17 10:15 Sodium Chloride 1,000 ml @ 125 mls/hr Q8H IV 11/22/17 10:51 11/22/17 11:59 Acetaminophen (Tylenol) 650 mg Q4H PRN PO PAIN SCALE 1 TO 10 11/22/17 11:00 Lorazepam (Ativan Inj) 2 mg Q15M PRN IV PUSH SEIZURES 11/22/17 11:00 Phenytoin (Dilantin) 100 mg DAILY PO 11/23/17 09:00 Clonazepam (KlonoPIN) 0.5 mg HS PO 11/22/17 21:00 Oxcarbazepine (Trileptal) 300 mg DAILY PO 11/23/17 09:00 Oxcarbazepine (Trileptal) 600 mg BID PO 11/22/17 21:00 Phenobarbital (PHENobarbital) 32.4 mg HS PO 11/22/17 21:00 Phenobarbital (PHENobarbital) 64.8 mg DAILY PO 11/23/17 09:00 Phenytoin (Dilantin) 200 mg HS PO 11/22/17 21:00 Patient Own Medication PT OWN MED: (Brivaracetam (Brivia... BID PO 11/22/17 21:00 Future Hold Family History No known family history of carcinoma or seizures Social History Lives at home with mother, no reports of tobacco, etoh or illicit drug use (Micki Vasquez) Physical Exam Vital Signs Vital Signs Date Time Temp Pulse Resp B/P (MAP) Pulse Ox O2 Delivery O2 Flow Rate FiO2 11/22/17 13:24 73 17 129/73 (91) 98 Room Air 11/22/17 10:14 63 17 113/61 (78) 96 Room Air 11/22/17 07:07 Room Air 11/22/17 07:02 75 17 135/76 (95) 98 Physical Exam NEUROLOGICAL: Awake, but lethargic. The patient is able to tell me his name and the year but not the current month. Cranial nerve examination demonstrates the pupils to be equal, round, and reactive to light. Extra-ocular movements are intact with normal convergence. Facial motor function appears normal and symmetrical. Face sensation, hearing, visual ba, and olfaction can not be assessed properly due to the patients condition. The patient has an intact corneal reflex and a gag reflex. Sternocleidomastoid and trapezius have normal and symmetrical strength. Other cranial nerves are intact. Neck is soft and supple. Muscle testing reveals normal bulk and tone overall without rigidity, spasticity , fasciculations, or atrophy. Muscle strength is difficut to assess, moves well all muscle groups of both upper and lower extremities symetrically, 4/5 at least. Deep tendon reflexes are 1+ and symmetrical in the biceps, triceps, and brachioradialis, bilaterally, in the upper extremities. In the lower extremities , the patellar and Achilles are 1+, bilaterally. There is a bilateral plantar flexion response. Hoffmanns sign is negative. There is no clonus Cerebellar examination is limited due to the patient condition, but no obvious deficits are noted. Lungs clear Heart. regular rhythm and rate GASTROINTESTINAL: Abdomen soft, non-tender, nondistended. No rebound tenderness. Back: Tenderness noted along the midline of the mid lumbar region. No obvious deformity. MUSCULOSKELETAL: No obvious deformities. No clubbing. No cyanosis. No edema. Laboratory Laboratory Tests Test 11/22/17 07:17 White Blood Count 8.7 Red Blood Count 4.40 Hemoglobin 14.6 Hematocrit 40.4 Mean Corpuscular Volume 91.8 Mean Corpuscular Hemoglobin 33.1 Mean Corpuscular Hemoglobin Concent 36.1 Red Cell Distribution Width 14.0 Platelet Count 233 Mean Platelet Volume 8.1 Neutrophils (%) (Auto) 84.5 Lymphocytes (%) (Auto) 8.7 Monocytes (%) (Auto) 6.3 Eosinophils (%) (Auto) 0.3 Basophils (%) (Auto) 0.2 Neutrophils # (Auto) 7.4 Lymphocytes # (Auto) 0.8 Monocytes # (Auto) 0.5 Eosinophils # (Auto) 0.0 Basophils # (Auto) 0.0 CBC Comment AUTO DIFF Differential Comment AUTO DIFF CONFIRMED Blood Urea Nitrogen 8 Creatinine 0.80 Random Glucose 100 Total Protein 8.4 Albumin 3.8 Calcium Level 8.7 Alkaline Phosphatase 154 Aspartate Amino Transf (AST/SGOT) 49 Alanine Aminotransferase (ALT/SGPT) 28 Total Bilirubin 0.3 Sodium Level 130 Potassium Level 5.3 Chloride Level 96 Carbon Dioxide Level 24.4 Anion Gap 10 Estimat Glomerular Filtration Rate 99 Lactic Acid Level 3.0 Phenytoin (Dilantin) Level 7.9 Phenobarbital Level 37.6 (Tho Bradley MD) Result Diagram: 11/22/17 0717 11/22/17 0717 Imaging Last Impressions Lumbar Spine CT 11/22/17 0000 Signed Impressions: Service Date/Time: Wednesday, November 22, 2017 07:46 - CONCLUSION: 1. Suspected acute fracturing of the superior endplate of L3. There is a previous compression of only seen on the prior plain film but the defect appears to progressed since the prior plain film and now there appears to be areas of acute fracturing seen at the superior endplate. 2. Minimal anterior wedging of the superior plate of L1 and a suspected Schmorl's node at the superior aspect of L2 which are likely chronic. 3. Left lateral recess and left neural foramen disc protrusion at the L2-L3 level. Nathan Jackman MD Head CT 11/22/17 0000 Signed Impressions: Service Date/Time: Wednesday, November 22, 2017 07:43 - CONCLUSION: 1. Stable noncontrast head CT. No acute intracranial abnormality is identified. 2. Chronic changes include encephalomalacia in the left frontal lobe and left temporal lobe. Nathan Sanches MD (Micki Vasquez) Attending Statement I reviewed his radiological studies Lumbar Spine CT 11/22/17 0000 Signed Impressions: Service Date/Time: Wednesday, November 22, 2017 07:46 - CONCLUSION: 1. Suspected acute fracturing of the superior endplate of L3. There is a previous compression of only seen on the prior plain film but the defect appears to progressed since the prior plain film and now there appears to be areas of acute fracturing seen at the superior endplate. 2. Minimal anterior wedging of the superior plate of L1 and a suspected Schmorl's node at the superior aspect of L2 which are likely chronic. 3. Left lateral recess and left neural foramen disc protrusion at the L2-L3 level. Nathan Jackman MD Head CT 11/22/17 0000 Signed Impressions: Service Date/Time: Wednesday, November 22, 2017 07:43 - CONCLUSION: 1. Stable noncontrast head CT. No acute intracranial abnormality is identified. 2. Chronic changes include encephalomalacia in the left frontal lobe and left temporal lobe. Nathan Sanches MD neuro checks in serial fashion. recommend MRI spine for further evaluation Pulmonary. aggressive pulmonary toilette, nasotracheal suction, and breathing treatments with nebulizers. Seizure management. per neurology Nutrition. Oral diet Renal. monitor closely urine output, BUN and creatinine Endocrine. Monitor serial Acu checks and SSI as needed in detail ID monitor for signs of infection Protonix for stress ulcer prophylaxis Christiano hose and SCD's for DVT prophylaxis. (Tho Bradley MD) Tho Bradley MD November 22, 2017 13:45 Micki Vasquez November 22, 2017 16:31
--- NOTE | 2017-11-22 15:18 | EKG ---
Date Performed: 11/22/2017 Time Performed: 07:35:01 PTAGE: 57 years EKG: Sinus rhythm WITH OCCASIONAL SUPRAVENTRICULAR PREMATURE COMPLEXES LOW QRS VOLTAGE IN PRECORDIAL LEADS BORDERLINE ECG No significant change from prior electrocardiogram. PREVIOUS TRACING : 09/22/2017 12.17 DOCTOR: Lisandro Lundberg Interpretating Date/Time 11/22/2017 15:18:07
[2017-11-22] MEDS ORDERED: CHLORHEXIDINE GLUCONATE 2 % 1 PACK (2 CLOTHS)(extra cloths) TOPICAL PRN (17:15)
[2017-11-22 17:45] LABS: BICARBONATE 29.9 MEQ/L (21.0-32.0); CALCIUM 8.4 MG/DL (8.5-10.1); CREATININE 0.63 MG/DL (0.60-1.30)
[2017-11-22] MEDS ORDERED: SODIUM CHLORIDE 0.9% FLUSH 10 ML FLUSH IV FLUSH SCH (21:00)
[2017-11-22] MEDS: SODIUM CHLORIDE 0.9% FLUSH 10 ML FLUSH IV FLUSH SCH (21:00)
[2017-11-22] MEDS ORDERED: BRIVARACETAM 200 MG PO SCH (21:00)
[2017-11-22] MEDS: PHENYTOIN SODIUM 100 MG CAP PO SCH (21:18)
[2017-11-22] MEDS: clonazePAM 0.5 MG TAB PO SCH (21:20)
[2017-11-22] MEDS: OXcarbazepine 600 MG TAB PO SCH (21:20)
[2017-11-22] MEDS: PHENobarbital 32.4 MG TAB PO SCH (21:20)
[2017-11-22] MEDS: BRIVARACETAM PO SCH (21:22)
[2017-11-23] VITALS (20 sets, daily range): BP systolic 92–141; BP diastolic 52–79; PULSE 51–74; RESP 8–21; TEMP 97.8–98.6; O2SAT 92–100
[2017-11-23] MEDS: SODIUM CHLOR 0.9% 1000 ML INJ 1,000 ML IV SCH (03:36)
[2017-11-23] MEDS: CHLORHEXIDINE GLUCONATE 2 % 1 PACK (2 CLOTHS)(taper/protocol) TOPICAL SCH (04:00)
[2017-11-23 06:51] LABS: AUTOMATED NEUTROPHIL # 3.8 TH/MM3 (1.8-7.7); BASOPHIL % 0.6 % (0.0-2.0); EOSINOPHIL # 0.2 TH/MM3 (0-0.4); EOSINOPHIL % 2.7 % (0.0-4.0); HEMATOCRIT 40.3 % (39.0-51.0); HEMOGLOBIN 13.9 GM/DL (13.0-17.0); LYMPH % 24.9 % (9.0-44.0); LYMPHOCYTE # 1.5 TH/MM3 (1.0-4.8); MEAN CORPUSCULAR HEMOGLOBIN 32.1 PG (27.0-34.0); MEAN CORPUSCULAR HGB CONC 34.5 % (32.0-36.0); MEAN PLATELET VOLUME 8.1 FL (7.0-11.0); MONOCYTE # 0.5 TH/MM3 (0-0.9); NEUT % 63.8 % (16.0-70.0); PLATELET COUNT 235 TH/MM3 (150-450); RED BLOOD COUNT 4.33 MIL/MM3 (4.50-5.90); RED CELL DISTRIBUTION WIDTH 14.3 % (11.6-17.2); WHITE BLOOD COUNT 5.9 TH/MM3 (4.0-11.0)
[2017-11-23 07:35] LABS: ALT (GPT) 23 U/L (12-78); AST (GOT) 18 U/L (15-37); CHLORIDE 103 MEQ/L (98-107); CREATININE 0.58 MG/DL (0.60-1.30); GLOMERULAR FILTRATION RATE 143 ML/MIN (>89); GLUCOSE,RANDOM 81 MG/DL (74-106); SODIUM (NA) 139 MEQ/L (136-145)
[2017-11-23 07:37] LABS: ALBUMIN 3.6 GM/DL (3.4-5.0); ALKALINE PHOSPHATASE 136 U/L (45-117); BICARBONATE 28.4 MEQ/L (21.0-32.0); BLOOD UREA NITROGEN 6 MG/DL (7-18); CALCIUM 8.5 MG/DL (8.5-10.1); TOTAL BILIRUBIN ADULT 0.4 MG/DL (0.2-1.0); TOTAL PROTEIN 7.4 GM/DL (6.4-8.2)
--- NOTE | 2017-11-23 08:40 | MG ---
cc: Isiah Laura MD DATE: 11/22/2017 ELECTROENCEPHALOGRAM NUMBER: [id number]. INDICATIONS: Some slowing. Found in the bathroom, hit his head, developmental delay, seizures. MEDICATIONS: Dilantin, Trileptal, phenobarbital, Klonopin, Ativan, status post 3 mg of Ativan. DESCRIPTION: Recording shows some 6 Hz diffuse slowing, some bifrontally sharply contoured theta waves are noted. At times, some semirhythmic sharply contoured slowing is seen over the bicentral head region and whether a part of it is a sleep variant is unclear. Photic stimulation is then performed, without significant posterior driving. IMPRESSION: There is some bifrontal sharply contoured waves, which are abnormal. I do not see any definite prolonged seizure, but there were some areas that looked like it could have been runs of some electroencephalographic seizures throughout the recording in the same distribution as the sharp waves. Clinical correlation is needed. MD DAVID Sebastian/LISA , 06:15 PM , 06:25 PM
[2017-11-23] MEDS ORDERED: OXcarbazepine 300 MG TAB PO SCH (09:00)
[2017-11-23] MEDS: BRIVARACETAM PO SCH ×2 (09:00→21:00)
--- NOTE | 2017-11-23 09:16 | HHI.PR ---
Review/Management Diagnosis/Plan: (1) Seizure disorder ICD Codes: G40.909 - Seizure disorder Status: Acute Plan: Intractable Epilepsy with breakthrough sz on 5 sz medications and with VNS resume home medications Briviact 100mg bid Trileptal 300mg 2 tabs qam, 1 at lunch and 2 qhs Phenobarb 64.8mg 1 qam and 1/2 qhs Klonopin 0.5mg 1 po qhs Dilantin to 100mg qam and 200 qhs recs f/u eeg today d/c planning today per pt/mother request after p.t. eval and recs d/w medical/rn sz/fall precautions at home no driving/climbing heights outpatient f/u with Dr. Narayanan (2) Breakthrough seizure ICD Codes: G40.919 - Breakthrough seizure Status: Acute Plan: likely related to subtherapeutic dilantin level use magnetic on implantable device for aura or after seizure (3) Compression fracture of lumbar vertebra ICD Codes: S32.000A - Wedge compression fracture of unspecified lumbar vertebra , initial encounter for closed fracture Status: Acute Plan: nsx eval (4) Hypertension ICD Codes: I10 - Essential (primary) hypertension Status: Chronic Plan: blood pressure control Subjective Subjective Comments No acute events reported; no sz overnight No headache No chest pain No dyspnea Active Medications Current Medications Medications (Trade) Dose Ordered Sig/Ashley Route Start Time Stop Time Status Last Admin (NS Flush) 2 ml UNSCH PRN IV FLUSH 11/22/17 10:15 (NS Flush) 2 ml BID IV FLUSH 11/22/17 21:00 11/22/17 21:00 (Narcan Inj) 0.4 mg UNSCH PRN IV PUSH 11/22/17 10:15 (Milk Of Magnesia Liq) 30 ml Q12H PRN PO 11/22/17 10:15 (Senokot) 17.2 mg Q12H PRN PO 11/22/17 10:15 (Dulcolax Supp) 10 mg DAILY PRN RECTAL 11/22/17 10:15 (Lactulose Liq) 30 ml DAILY PRN PO 11/22/17 10:15 Sodium Chloride 1,000 ml @ 125 mls/hr Q8H IV 11/22/17 10:51 11/23/17 03:36 (Tylenol) 650 mg Q4H PRN PO 11/22/17 11:00 (Ativan Inj) 2 mg Q15M PRN IV PUSH 11/22/17 11:00 (Dilantin) 100 mg DAILY PO 11/23/17 09:00 (KlonoPIN) 0.5 mg HS PO 11/22/17 21:00 11/22/17 21:20 (Trileptal) 300 mg DAILY PO 11/23/17 09:00 (Trileptal) 600 mg BID PO 11/22/17 21:00 11/22/17 21:20 (PHENobarbital) 32.4 mg HS PO 11/22/17 21:00 11/22/17 21:20 (PHENobarbital) 64.8 mg DAILY PO 11/23/17 09:00 (Dilantin) 200 mg HS PO 11/22/17 21:00 11/22/17 21:18 ([facility] Nursing Information) Patient in critical care unit? Ass... [id number] .XX 11/22/17 17:15 11/22/17 17:15 (Chlorhexidine 2% Cloth) 3 pack DAILY@04 TOPICAL 11/23/17 04:00 11/27/17 04:01 11/23/17 04:00 (Chlorhexidine 2% Cloth) 3 pack UNSCH PRN TOPICAL 11/22/17 17:15 11/27/17 17:05 Patient Own Medication PTOWN NARC:Briviact (Brivaracet... BID PO 11/22/17 21:00 11/22/17 21:22 Allergies Allergies Coded Allergies divalproex sodium (Unverified Allergy, Severe, 09/22/17) MRI PRECAUTION (Verified Adverse Reaction, Unknown, 09/22/17) Uncoded Allergies ANTIHISTAMINE ( Allergy, Severe, 03/08/17) THERAFLU ( Allergy, Severe, Seizures, 12/10/11) Review of Systems Constitutional: Negative, Negative except HPI Eye: Negative Except HPI ENMT: Negative except HPI Respiratory: Negative except HPI Cardiovascular: Negative except HPI Gastrointestinal: Negative except HPI Ralph/Lymph: Negative except HPI Musculoskeletal: Back pain Neurologic: Negative except HPI Psychiatric: Negative except HPI All other ROS: ROS reviewed as documented in chart Exam I&O / VS Vital Signs Date Time Temp Pulse Resp B/P (MAP) Pulse Ox O2 Delivery O2 Flow Rate FiO2 11/23/17 07:56 100 Nasal Cannula 2.00 11/23/17 06:00 54 11/23/17 04:00 97.8 51 17 109/65 (80) 100 11/23/17 04:00 51 11/23/17 02:00 55 11/23/17 00:00 98.6 55 8 97/52 (67) 92 11/23/17 00:00 55 11/22/17 22:00 65 11/22/17 20:00 98.2 59 20 128/66 (86) 97 11/22/17 20:00 59 11/22/17 19:30 97 21 11/22/17 18:00 64 11/22/17 16:00 57 11/22/17 16:00 98.0 57 12 117/63 (81) 96 11/22/17 14:35 11/22/17 14:34 97.8 64 16 120/62 (81) 96 11/22/17 14:30 64 11/22/17 13:26 96 21 11/22/17 13:24 73 17 129/73 (91) 98 Room Air 11/22/17 10:14 63 17 113/61 (78) 96 Room Air General: Alert and Oriented, No acute distress Eye: PERRL, EOMI Respiratory: Non-labored respirations Cardiology: Normal rate Neurologic: Alert, No focal defects Psychiatric: Cooperative, Appropriate mood & affect Exam Comments alert, ox 2, follows, some dysfluency, face sym, [place] to gravity Objective Micro and Labs Laboratory Tests Test 11/22/17 14:45 11/22/17 16:59 11/23/17 05:32 Nasal Screen MRSA (PCR) MRSA NOT DETECTED Blood Urea Nitrogen 6 6 Creatinine 0.63 0.58 Random Glucose 88 81 Calcium Level 8.4 8.5 Sodium Level 135 139 Potassium Level 4.3 3.9 Chloride Level 100 103 Carbon Dioxide Level 29.9 28.4 Anion Gap 5 8 Estimat Glomerular Filtration Rate 130 143 White Blood Count 5.9 Red Blood Count 4.33 Hemoglobin 13.9 Hematocrit 40.3 Mean Corpuscular Volume 93.0 Mean Corpuscular Hemoglobin 32.1 Mean Corpuscular Hemoglobin Concent 34.5 Red Cell Distribution Width 14.3 Platelet Count 235 Mean Platelet Volume 8.1 Neutrophils (%) (Auto) 63.8 Lymphocytes (%) (Auto) 24.9 Monocytes (%) (Auto) 8.0 Eosinophils (%) (Auto) 2.7 Basophils (%) (Auto) 0.6 Neutrophils # (Auto) 3.8 Lymphocytes # (Auto) 1.5 Monocytes # (Auto) 0.5 Eosinophils # (Auto) 0.2 Basophils # (Auto) 0.0 CBC Comment DIFF FINAL Differential Comment Total Protein 7.4 Albumin 3.6 Alkaline Phosphatase 136 Aspartate Amino Transf (AST/SGOT) 18 Alanine Aminotransferase (ALT/SGPT) 23 Total Bilirubin 0.4 Problem Qualifiers (1) Compression fracture of lumbar vertebra: Qualified Codes: S32.030A - Wedge compression fracture of third lumbar vertebra , initial encounter for closed fracture Fabian Vogt MD November 23, 2017 09:16
[2017-11-23] MEDS: SODIUM CHLORIDE 0.9% FLUSH 10 ML FLUSH IV FLUSH SCH ×2 (09:18→21:00)
[2017-11-23] MEDS: OXcarbazepine 600 MG TAB PO SCH ×2 (09:19→20:59)
[2017-11-23] MEDS: PHENobarbital 32.4 MG TAB PO SCH ×2 (09:20→21:00)
[2017-11-23] MEDS: PHENYTOIN SODIUM 100 MG CAP PO SCH ×2 (09:21→21:00)
--- NOTE | 2017-11-23 10:35 | HHI.NSPN ---
(Micki Vasquez) Note Status Status: Progress Note (Micki Vasquez) Interval History Interval History Mr. Hooks is a 57-year-old male with history of seizures. Mr. Hooks has a history of epilepsy and developmental delay. He follows at [facility] for his seizure disorder. He has an implantable vagal stimulator. The patient has had several breakthrough seizures causing him to fall. He had complained of back pain a few weeks ago after one of his seizures. He was brought to [facility] ED today due to recurrent uncontrolled seizures and had a witnessed tonic-clonic event. His labs showed a subtherapeutic phenytoin level. CT of the lumbar spine showed compression fracture of L3. Neurosurgical evaluation of lumbar fracture was requested. 11/23: MRI L-spine not yet completed, mother to bring in information regarding his implant as she says he is able to undergo an MRI from the chest down. (Micki Vasquez) Labs, Micro, & Vital Signs Results Date Time Temp Pulse Resp B/P (MAP) Pulse Ox O2 Delivery O2 Flow Rate FiO2 11/23/17 07:56 100 Nasal Cannula 2.00 11/23/17 06:00 54 11/23/17 04:00 97.8 51 17 109/65 (80) 100 11/23/17 04:00 51 11/23/17 02:00 55 11/23/17 00:00 98.6 55 8 97/52 (67) 92 11/23/17 00:00 55 11/22/17 22:00 65 11/22/17 20:00 98.2 59 20 128/66 (86) 97 11/22/17 20:00 59 11/22/17 19:30 97 21 11/22/17 18:00 64 11/22/17 16:00 57 11/22/17 16:00 98.0 57 12 117/63 (81) 96 11/22/17 14:35 11/22/17 14:34 97.8 64 16 120/62 (81) 96 11/22/17 14:30 64 11/22/17 13:26 96 21 11/22/17 13:24 73 17 129/73 (91) 98 Room Air Constitutional Vital Signs Date Time Temp Pulse Resp B/P (MAP) Pulse Ox O2 Delivery O2 Flow Rate FiO2 11/23/17 07:56 100 Nasal Cannula 2.00 11/23/17 06:00 54 11/23/17 04:00 97.8 51 17 109/65 (80) 100 11/23/17 04:00 51 11/23/17 02:00 55 11/23/17 00:00 98.6 55 8 97/52 (67) 92 11/23/17 00:00 55 11/22/17 22:00 65 11/22/17 20:00 98.2 59 20 128/66 (86) 97 11/22/17 20:00 59 11/22/17 19:30 97 21 11/22/17 18:00 64 11/22/17 16:00 57 11/22/17 16:00 98.0 57 12 117/63 (81) 96 11/22/17 14:35 11/22/17 14:34 97.8 64 16 120/62 (81) 96 11/22/17 14:30 64 11/22/17 13:26 96 21 11/22/17 13:24 73 17 129/73 (91) 98 Room Air (Micki Vasquez) Review of Systems Constitutional: DENIES: Fever, Chills Respiratory: DENIES: Hemoptysis Cardiovascular: DENIES: Chest pain Musculoskeletal: COMPLAINS OF: Back pain Neurologic: DENIES: Headache, Localized weakness (Micki Vasquez) Physical Exam General: The patient is comfortable, in no obvious distress during examination. HEENT: Normocephalic, frontal contusions from his fall. Gross hearing intact bilaterally. Nonicteric sclera. Musculoskeletal: no obvious deformities. moving all four extremities. Neuro: Awake, alert. Cranial nerve: pupils equal, round, and reactive to light. Extra-ocular movements are intact with normal convergence. Facial motor symmetrical. Gross hearing is intact, bilaterally, to finger rub. Other cranial nerves are grossly intact. Plantars flexors bilaterally. Lungs: clear, nonlabored breathing, no wheezing Heart: regular rate rhythm Skin: warm and dry, no cyanosis. (Micki Vasquez) General: The patient is comfortable, in no obvious distress during examination. HEENT: Normocephalic, frontal contusions from his fall. Gross hearing intact bilaterally. Nonicteric sclera. Musculoskeletal: no obvious deformities. moving all four extremities. Neuro: Awake, alert. Cranial nerve: pupils equal, round, and reactive to light. Extra-ocular movements are intact with normal convergence. Facial motor symmetrical. Gross hearing is intact, bilaterally, to finger rub. Other cranial nerves are grossly intact. Plantars flexors bilaterally. Lungs: clear, nonlabored breathing, no wheezing Heart: regular rate rhythm Skin: warm and dry, no cyanosis (Tho Bradley MD) Medications Current Medications Current Medications Medications (Trade) Dose Ordered Sig/Ashley Route PRN Reason Start Time Stop Time Status Last Admin Dose Admin Sodium Chloride (NS Flush) 2 ml UNSCH PRN IV FLUSH FLUSH AFTER USING IV ACCESS 11/22/17 10:15 Sodium Chloride (NS Flush) 2 ml BID IV FLUSH 11/22/17 21:00 11/23/17 09:18 Naloxone HCl (Narcan Inj) 0.4 mg UNSCH PRN IV PUSH SEE LABEL COMMENTS 11/22/17 10:15 Magnesium Hydroxide (Milk Of Magnesia Liq) 30 ml Q12H PRN PO Mild constipation 11/22/17 10:15 Sennosides (Senokot) 17.2 mg Q12H PRN PO Moderate constipation 11/22/17 10:15 Bisacodyl (Dulcolax Supp) 10 mg DAILY PRN RECTAL SEVERE CONSITIPATION 11/22/17 10:15 Lactulose (Lactulose Liq) 30 ml DAILY PRN PO SEVERE CONSITIPATION 11/22/17 10:15 Sodium Chloride 1,000 ml @ 125 mls/hr Q8H IV 11/22/17 10:51 11/23/17 03:36 Acetaminophen (Tylenol) 650 mg Q4H PRN PO PAIN SCALE 1 TO 10 11/22/17 11:00 Lorazepam (Ativan Inj) 2 mg Q15M PRN IV PUSH SEIZURES 11/22/17 11:00 Phenytoin (Dilantin) 100 mg DAILY PO 11/23/17 09:00 11/23/17 09:21 Clonazepam (KlonoPIN) 0.5 mg HS PO 11/22/17 21:00 11/22/17 21:20 Oxcarbazepine (Trileptal) 300 mg DAILY PO 11/23/17 09:00 11/23/17 09:00 Oxcarbazepine (Trileptal) 600 mg BID PO 11/22/17 21:00 11/23/17 09:19 Phenobarbital (PHENobarbital) 32.4 mg HS PO 11/22/17 21:00 11/22/17 21:20 Phenobarbital (PHENobarbital) 64.8 mg DAILY PO 11/23/17 09:00 11/23/17 09:20 Phenytoin (Dilantin) 200 mg HS PO 11/22/17 21:00 11/22/17 21:18 Miscellaneous Information ([facility] Information) Patient in critical care unit? Ass... Q361D .XX 11/22/17 17:15 11/22/17 17:15 Chlorhexidine Gluconate (Chlorhexidine 2% Cloth) 3 pack DAILY@04 TOPICAL 11/23/17 04:00 11/27/17 04:01 11/23/17 04:00 Chlorhexidine Gluconate (Chlorhexidine 2% Cloth) 3 pack UNSCH PRN TOPICAL HYGIENIC CARE 11/22/17 17:15 11/27/17 17:05 Patient Own Medication PTOWN NARC:Briviact (Brivaracet... BID PO 11/22/17 21:00 11/23/17 09:00 (Micki Vasquez) Current Medications Current Medications Sodium Chloride 1,000 ml @ 1,000 mls/hr Q1H ONCE IV Last administered on at 07:22; Start 11/22/17 at 07:07; Stop 11/22/17 at 08:06; Status DC Sodium Chloride (NS Flush) 2 ml UNSCH PRN IVF FLUSH AFTER USING IV ACCESS; Start 11/22/17 at 07:15; Stop 11/22/17 at 11:13; Status DC Lorazepam (Ativan Inj) 1 mg ONCE ONCE IV PUSH Last administered on 11/22/17at 08 :29; Start 11/22/17 at 08:30; Stop 11/22/17 at 08:31; Status DC Fosphenytoin Sodium 1000 mgpe/ Sodium Chloride 70 ml @ 280 mls/hr ONCE ONCE IV Last administered on 11/22/17at 08:39; Start 11/22/17 at 08:30; Stop 11/22/17 at 08:44; Status DC Lorazepam (Ativan Inj) 2 mg STK-MED ONCE .ROUTE ; Start 11/22/17 at 08:22; Stop 11/22/17 at 08:23; Status DC Sodium Chloride (NS Flush) 2 ml UNSCH PRN IV FLUSH FLUSH AFTER USING IV ACCESS ; Start 11/22/17 at 10:15; Stop 11/24/17 at 13:46; Status DC Sodium Chloride (NS Flush) 2 ml BID IV FLUSH Last administered on 11/24/17at 08: 35; Start 11/22/17 at 21:00; Stop 11/24/17 at 13:46; Status DC Naloxone HCl (Narcan Inj) 0.4 mg UNSCH PRN IV PUSH SEE LABEL COMMENTS; Start at 10:15; Stop 11/24/17 at 13:46; Status DC Magnesium Hydroxide (Milk Of Magnesia Liq) 30 ml Q12H PRN PO Mild constipation ; Start 11/22/17 at 10:15; Stop 11/24/17 at 13:46; Status DC Sennosides (Senokot) 17.2 mg Q12H PRN PO Moderate constipation; Start 11/22/17 at 10:15; Stop 11/24/17 at 13:46; Status DC Bisacodyl (Dulcolax Supp) 10 mg DAILY PRN RECTAL SEVERE CONSITIPATION; Start at 10:15; Stop 11/24/17 at 13:46; Status DC Lactulose (Lactulose Liq) 30 ml DAILY PRN PO SEVERE CONSITIPATION; Start at 10:15; Stop 11/24/17 at 13:46; Status DC Sodium Chloride 1,000 ml @ 125 mls/hr Q8H IV Last administered on 11/23/17at 03: 36; Start 11/22/17 at 10:51; Stop 11/23/17 at 11:54; Status DC Sodium Chloride (NS Flush) 2 ml UNSCH PRN IV FLUSH FLUSH AFTER USING IV ACCESS ; Start 11/22/17 at 11:00; Stop 11/22/17 at 11:13; Status DC Sodium Chloride (NS Flush) 2 ml BID IV FLUSH ; Start 11/22/17 at 21:00; Stop 11/22 at 21:00; Status DC Acetaminophen (Tylenol) 650 mg Q4H PRN PO PAIN SCALE 1 TO 10; Start 11/22/17 at 11:00; Stop 11/24/17 at 13:46; Status DC Lorazepam (Ativan Inj) 2 mg Q15M PRN IV PUSH SEIZURES; Start 11/22/17 at 11:00; Stop 11/24/17 at 13:46; Status DC Phenytoin (Dilantin) 100 mg DAILY PO Last administered on 11/24/17at 08:34; Start 11/23/17 at 09:00; Stop 11/24/17 at 13:46; Status DC Clonazepam (KlonoPIN) 0.5 mg HS PO Last administered on 11/23/17at 21:00; Start 11/22/17 at 21:00; Stop 11/24/17 at 13:46; Status DC Oxcarbazepine (Trileptal) 300 mg DAILY PO Last administered on 11/23/17at 09:00; Start 11/23/17 at 09:00; Stop 11/24/17 at 07:16; Status DC Oxcarbazepine (Trileptal) 600 mg BID PO Last administered on 11/24/17at 08:34; Start 11/22/17 at 21:00; Stop 11/24/17 at 13:46; Status DC Phenobarbital (PHENobarbital) 32.4 mg HS PO Last administered on 11/23/17at 21:00 ; Start 11/22/17 at 21:00; Stop 11/24/17 at 13:46; Status DC Phenobarbital (PHENobarbital) 64.8 mg DAILY PO Last administered on 11/24/17at 08 :34; Start 11/23/17 at 09:00; Stop 11/24/17 at 13:46; Status DC Phenytoin (Dilantin) 200 mg HS PO Last administered on 11/23/17at 21:00; Start at 21:00; Stop 11/24/17 at 13:46; Status DC Patient Own Medication PT OWN MED: (Brivaracetam (Brivia... BID PO ; Start at 21:00; Stop 11/22/17 at 21:00; Status DC Miscellaneous Information ([facility] Nursing Information) Patient in critical care unit? Ass... Q361D .XX Last administered on 11/22/17at 17:15; Start 11/22/17 at 17:15; Stop 11/24/17 at 13:46; Status DC Chlorhexidine Gluconate (Chlorhexidine 2% Cloth) 3 pack DAILY@04 TOPICAL Last administered on 11/24/17at 04:00; Start 11/23/17 at 04:00; Stop 11/24/17 at 13:46; Status DC Chlorhexidine Gluconate (Chlorhexidine 2% Cloth) 3 pack UNSCH PRN TOPICAL HYGIENIC CARE; Start 11/22/17 at 17:15; Stop 11/24/17 at 13:46; Status DC Patient Own Medication PTOWN NARC:Briviact (Brivaracet... BID PO Last administered on 11/24/17at 08:35; Start 11/22/17 at 21:00; Stop 11/24/17 at 13:46; Status DC Oxcarbazepine (Trileptal) 300 mg DAILY@1200 PO Last administered on 11/24/17at 11 :32; Start 11/24/17 at 12:00; Stop 11/24/17 at 13:46; Status DC (Tho Bradley MD) Medical Decision Making MDM Remarks 57-year-old male with uncontrolled seizures, s/p ground level falls history of implanted vagal stimulator, ?MRI compatible multiple lumbar fractures, acute vs chronic (Micki Vasquez) Plan Plan Remarks awaiting MRI Lumbar spine if this is possible, mother is to bring in documentation regarding his implant cont supportive care cont AEDs, defer seizure mgt per Neurology (Micki Vasquez) Attending Statement Awaiting MRI I suspect his fractures likely chronic Will; obtain flexion extension xrays I will defer further recommendations to upon completion of his workup The exam, history, and the medical decision-making described in the above note were completed with the assistance of the mid-level provider. I reviewed and agree with the findings presented. I attest that I had a [id number] encounter with the patient on the same day, and personally performed and documented my assessment and findings in the medical record. (Tho Bradley MD) Micki Vasquez November 23, 2017 10:35 Tho Bradley MD November 25, 2017 16:02
--- NOTE | 2017-11-23 11:54 | HHI.FPPN ---
Subjective Remarks Vital signs within normal limits most of the night. No seizure activity noted. Neurochecks report patient alert, verbal, obeying commands, and no deficits. No complaints or problems from patient today, although he seems to have some expressive aphasia/poor comprehension (Brenda Abarca MD R1) Objective Vitals Vital Signs Date Time Temp Pulse Resp B/P (MAP) Pulse Ox O2 Delivery O2 Flow Rate FiO2 11/23/17 07:56 100 Nasal Cannula 2.00 11/23/17 06:00 54 11/23/17 04:00 97.8 51 17 109/65 (80) 100 11/23/17 04:00 51 11/23/17 02:00 55 11/23/17 00:00 98.6 55 8 97/52 (67) 92 11/23/17 00:00 55 11/22/17 22:00 65 11/22/17 20:00 98.2 59 20 128/66 (86) 97 11/22/17 20:00 59 11/22/17 19:30 97 21 11/22/17 18:00 64 11/22/17 16:00 57 11/22/17 16:00 98.0 57 12 117/63 (81) 96 11/22/17 14:35 11/22/17 14:34 97.8 64 16 120/62 (81) 96 11/22/17 14:30 64 11/22/17 13:26 96 21 11/22/17 13:24 73 17 129/73 (91) 98 Room Air I/O 11/22/17 11/22/17 11/22/17 11/23/17 11/23/17 11/23/17 07:00 15:00 23:00 07:00 15:00 23:00 Intake Total 40 ml 30 ml Output Total 700 ml Balance 40 ml -670 ml Intake Oral 40 ml 30 ml Output Urine Total 700 ml # Voids 1 (Brenda Abarca MD R1) Result Diagram: 11/23/17 0532 11/23/17 0532 Objective Remarks O. CONSTITUTIONAL/GEN: This is an overweight male with some developmental delay resting comfortably in bed. React spontaneously to external stimuli, however is not very expressive. EYES: conjunctiva normal, PERRLA, EOMI. ENT: Mouth and pharynx normal. NECK: Supple LUNGS: clear A-P, respiratory effort is normal. CARDIOVASCULAR: RR without murmur or gallop. No significant edema. GI/ABD: soft without masses, without organomegaly. NEURO: No focal deficits observed. 5/5 motor strength in the upper extremities. 4/5 strength in the lower extremities, however patient seems to have difficulty responding to commands or answering questions. No tremors noted. SKIN: color normal, no rashes noted. HEME/LYMPH: no bruising, petechia MUSC: Extremities are normal in appearance. PSYCH/MENTAL STATUS: Alert. Either refuses or is unable to answer most questions. (Brenda Abarca MD R1) A/P Assessment and Plan Patient is a 57-year-old male with a history of epilepsy (on 5 different medications and with VNS) and developmental delay presenting with breakthrough seizure. Is also found to have sustained an acute compression fracture of the L3. Neurology consulted for medication management and order IV fluids, n.p.o. until bedside swallow study past,EEG, and seizure precautions while monitoring. Patient's Dilantin dose was increased. The rest of his home medications were resumed. EEG was ordered. Neurosurgery plans to perform MRI of the lumbar spine to further assess compression fracture. Patient may be cleared to go home depending on results. PT was ordered and discharge is being planned today per mother's request and neurology clearance; however, patient will need to follow-up right away with neurology for continued monitoring and management. Discharge Planning Discharge plan for today after following up MRI results and discussing with neurosurgery and receiving PT recommendations. (Brenda Abarca MD R1) Attending Attestation Patient examined independently and case discussed with resident physician I have read the above note and agree with the assessment/plan as discussed with me I was involved in all medical decision making for this patient Fabian Hutchinson MD (Fabian Hutchinson MD) Problem List: (1) Seizure disorder ICD Codes: G40.909 - Seizure disorder Status: Acute Plan: Patient is on 4 different seizure medications chronically: Trileptal 300 mg daily and 600 mg twice daily, phenobarbital 64.8 daily and 32.4 mg HS, Brivaracetam 100 mg p.o. twice daily, Dilantin 200 mg PO HS Uncertain as to etiology, differential: Lifestyle change (poor sleep versus poor appetite versus pain) versus electrolyte imbalance versus viral encephalitis versus TIA/encephalomalacia Patient is in the unit EEG ordered, showed some areas that look like runs of some seizures throughout the recording Neurology consulted, appreciate recommendations Dilantin dose was increased yesterday. Dilantin level this morning is within therapeutic range (10-20 MCG/ML) Seizure and fall precautions Neuro checks every 4 hours show normal abnormalities No longer n.p.o., patient able to tolerate diet Ativan 2 mg IV push ordered for every 15 minutes as needed seizures with a max dose of 2 Cardiac telemetry Speech therapy and PT recs pending (2) Hyperkalemia ICD Codes: E87.5 - Hyperkalemia Plan: Potassium 5.3 on admission May be due to hemolysis We will recheck potassium level at 3 PM today Patient on cardiac telemetry and IV fluids (3) Epilepsy ICD Codes: G40.909 - Epilepsy, unspecified, not intractable, without status epilepticus Status: Acute Plan: See above plan (4) Compression fracture of lumbar vertebra ICD Codes: S32.000A - Wedge compression fracture of unspecified lumbar vertebra , initial encounter for closed fracture Status: Acute Plan: CT of the lumbar spine on admission show acute compression fracture of the superior endplate of L3. Left lateral recess and left neural foramen disc protrusion is seen at the L2-L3 level. Neurosurgery consulted, plan to order MRI of the lumbar spine Physical therapy ordered by neurology, patient no longer on bed rest (5) FEN Plan: Fluids: PO Electrolytes: not indicated Nutrition: regular diet DVT prophylaxis: Not indicated at this time (Brenda Abarca MD R1) Problem Qualifiers (1) Epilepsy: Qualified Codes: G40.919 - Epilepsy, unspecified, intractable, without status epilepticus (2) Compression fracture of lumbar vertebra: Qualified Codes: S32.030A - Wedge compression fracture of third lumbar vertebra , initial encounter for closed fracture Brenda Abarca MD R1 November 23, 2017 11:54 Fabian Hutchinson MD November 23, 2017 17:04
[2017-11-23] MEDS ORDERED: DILA100C PO ×4 (14:22→14:24)
--- NOTE | 2017-11-23 14:26 | HHI.DCPOC ---
Discharge Care Plan Diagnosis: (1) Breakthrough seizure (2) Epilepsy Goals to Promote Your Health * To prevent worsening of your condition and complications * To maintain your health at the optimal level Directions to Meet Your Goals Take your medications as prescribed Follow your dietary instruction Follow activity as directed Keep your appointments as scheduled Take your immunizations and boosters as scheduled If your symptoms worsen call your PCP, if no PCP go to Urgent Care Center or Emergency Room Smoking is Dangerous to Your Health. Avoid second hand smoke Call the 24-hour hour crisis hotline for domestic abuse at Brenda Abarca MD R1 November 23, 2017 14:26
--- NOTE | 2017-11-23 15:54 | RADRPT ---
EXAM DATE/TIME: 11/23/2017 15:25 [facility] COMPARISON: CT LUMBAR SPINE W/O CONTRAST, November 22, 2017, 7:46. INDICATIONS : Evaluate lumbar stability. L3 fracture. MEDICAL HISTORY : Cardiovascular disease. Seizures. Hypertension. SURGICAL HISTORY : Appendectomy. ENCOUNTER: Subsequent ACUITY: 2 days PAIN SCORE: 5/10 LOCATION: Lumbar. FINDINGS: Lateral views of the lumbar spine were performed in flexion and extension. There is a moderate compre ssion fracture injury involving the L3 lumbar vertebral body. There are degenerative changes involvin g the lumbar spine. There is no evidence of subluxation or instability on the flexion-extension views . CONCLUSION: 1. No evidence of subluxation or instability on the flexion-extension views. 2. Moderate compression fracture injury at L3. 3. Primary bony degenerative changes. Fabian Narvaez MD on November 23, 2017 at 15:50 Board Certified Radiologist. This report was verified electronically.
[2017-11-23] MEDS: clonazePAM 0.5 MG TAB PO SCH (21:00)
[2017-11-24] VITALS (7 sets, daily range): BP systolic 121–138; BP diastolic 72–91; PULSE 53–73; RESP 13–19; TEMP 98.6; O2SAT 93–100
[2017-11-24] MEDS: CHLORHEXIDINE GLUCONATE 2 % 1 PACK (2 CLOTHS)(taper/protocol) TOPICAL SCH (04:00)
--- NOTE | 2017-11-24 07:26 | MG ---
cc: Isiah Laura MD ELECTROENCEPHALOGRAM NUMBER: [id number] INDICATIONS: Left frontal lobe and left temporal lobe encephalomalacia, breakthrough seizure. MEDICATIONS: Dilantin, Trileptal, phenobarbital, Klonopin. DESCRIPTION: The recording shows diffuse alpha and beta rhythms. The recording overall is synchronous and symmetric. The patient had a lot of snoring so sleep apnea could be considered. No focal abnormality was noted. No seizure activity was seen. Photic stimulation was performed without significant posterior driving. Hyperventilation was not performed. IMPRESSION: A generally unremarkable sleep recording. There was a lot of snoring. Sleep apnea could be considered. No focal abnormality was noted. No seizure activity was seen. Some medication effect was noted with all the beta rhythms. Isiah Laura MD DJM/DL , 07:11 AM , 07:24 AM
[2017-11-24] MEDS: PHENYTOIN SODIUM 100 MG CAP PO SCH (08:34)
[2017-11-24] MEDS: OXcarbazepine 600 MG TAB PO SCH (08:34)
[2017-11-24] MEDS: PHENobarbital 32.4 MG TAB PO SCH (08:34)
[2017-11-24] MEDS: BRIVARACETAM PO SCH (08:35)
[2017-11-24] MEDS: SODIUM CHLORIDE 0.9% FLUSH 10 ML FLUSH IV FLUSH SCH (08:35)
--- NOTE | 2017-11-24 08:40 | HHI.FPPN ---
Subjective Remarks No problems overnight Vitals are stable and within normal limits Patient feeling well enough to go home today (Brenda Abarca MD R1) Objective Vitals Vital Signs Date Time Temp Pulse Resp B/P (MAP) Pulse Ox O2 Delivery O2 Flow Rate FiO2 11/24/17 07:00 93 21 11/24/17 06:00 63 11/24/17 04:00 54 13 138/76 (96) 100 11/24/17 04:00 53 11/24/17 02:00 58 11/24/17 00:00 61 11/24/17 00:00 61 14 121/72 (88) 100 11/23/17 22:00 55 11/23/17 20:00 69 11/23/17 20:00 97.9 69 13 132/69 (90) 100 11/23/17 19:16 98 11/23/17 18:00 66 11/23/17 18:00 66 14 130/67 (88) 100 11/23/17 17:00 66 18 125/63 (83) 97 11/23/17 17:00 66 11/23/17 16:00 59 16 132/61 (84) 99 11/23/17 16:00 59 11/23/17 15:00 57 11/23/17 15:00 57 14 97 11/23/17 14:00 74 11/23/17 14:00 74 19 100 11/23/17 13:00 62 11/23/17 13:00 62 15 98 11/23/17 12:00 68 21 141/64 (89) 100 11/23/17 12:00 68 11/23/17 11:00 57 14 126/70 (88) 98 11/23/17 11:00 57 11/23/17 10:00 60 11/23/17 10:00 60 13 111/79 (90) 98 11/23/17 09:00 63 11/23/17 09:00 63 15 119/73 (88) 97 I/O 11/23/17 11/23/17 11/23/17 11/24/17 11/24/17 11/24/17 07:00 15:00 23:00 07:00 15:00 23:00 Intake Total 30 ml 3064 ml 480 ml Output Total 700 ml 650 ml Balance -670 ml 3064 ml -170 ml Intake Oral 30 ml 360 ml 480 ml IV Total 2704 ml Output Urine Total 700 ml 650 ml # Voids 6 # Bowel Movements 1 0 (Brenda Abarca MD R1) Result Diagram: 11/23/1753111/23/17531 Objective Remarks O. CONSTITUTIONAL/GEN: This is an overweight male with some developmental delay resting comfortably in bed. React spontaneously to external stimuli, however is not very expressive. EYES: conjunctiva normal, PERRLA, EOMI. ENT: Mouth and pharynx normal. NECK: Supple LUNGS: clear A-P, respiratory effort is normal. CARDIOVASCULAR: RR without murmur or gallop. No significant edema. GI/ABD: soft without masses, without organomegaly. NEURO: No focal deficits observed. 5/5 motor strength in the upper extremities. 4/5 strength in the lower extremities, however patient seems to have difficulty responding to commands or answering questions. No tremors noted. SKIN: color normal, no rashes noted. HEME/LYMPH: no bruising, petechia MUSC: Extremities are normal in appearance. PSYCH/MENTAL STATUS: Alert. Either refuses or is unable to answer most questions. (Brenda Abarca MD R1) A/P Assessment and Plan Patient is a 57-year-old male with a history of epilepsy (on 5 different medications and with VNS) and developmental delay presenting with breakthrough seizure. Is also found to have sustained an acute compression fracture of the L3. Dilantin was found to be subtherapeutic. Neurology consulted for medication management. Ordered IV fluids, n.p.o. until bedside swallow study past,EEG, and seizure precautions while monitoring. Patient's Dilantin dose was increased and patient was cleared for discharge by neurology, with recommendations for prompt follow-up. The rest of his home medications were resumed. Neurosurgery performed x-ray of the lumbar spine to further assess compression fractures. Patient was given a brace and discharge with recommendations for outpatient physical therapy and follow-up as needed. Discharge Planning Discharge today with brace per neurosurgery and referral to outpatient physical therapy. (Brenda Abarca MD R1) Attending Attestation Patient examined independently and case discussed with resident physician I have read the above note and agree with the assessment/plan as discussed with me I was involved in all medical decision making for this patient Fabian Hutchinson MD (Fabian Hutchinson MD) Problem List: (1) Seizure disorder ICD Codes: G40.909 - Seizure disorder Status: Acute Plan: Patient is on 4 different seizure medications chronically: Trileptal 300 mg daily and 600 mg twice daily, phenobarbital 64.8 daily and 32.4 mg HS, Brivaracetam 100 mg p.o. twice daily, Dilantin 200 mg PO HS No seizure activity overnight Neurology consulted, appreciate recommendations Adjustment to Dilantin medication regimen with 100 mg every morning to be taken in addition to 200 mg nightly dose. Neuro checks every 4 hours show normal abnormalities Tolerating diet, no limitations were made by speech therapy (2) Epilepsy ICD Codes: G40.909 - Epilepsy, unspecified, not intractable, without status epilepticus Status: Acute Plan: See above plan (3) Compression fracture of lumbar vertebra ICD Codes: S32.000A - Wedge compression fracture of unspecified lumbar vertebra , initial encounter for closed fracture Status: Acute Plan: CT of the lumbar spine on admission show acute compression fracture of the superior endplate of L3. Left lateral recess and left neural foramen disc protrusion is seen at the L2-L3 level. Discharge with lumbar brace and outpatient physical therapy (4) FEN Plan: Fluids: PO Electrolytes: not indicated Nutrition: regular diet DVT prophylaxis: Not indicated at this time (Brenda Abarca MD R1) Problem Qualifiers (1) Epilepsy: Qualified Codes: G40.919 - Epilepsy, unspecified, intractable, without status epilepticus (2) Compression fracture of lumbar vertebra: Qualified Codes: S32.030A - Wedge compression fracture of third lumbar vertebra , initial encounter for closed fracture Brenda Abarca MD R1 November 24, 2017 08:40 Fabian Hutchinson MD November 24, 2017 14:59
[2017-11-24] MEDS ORDERED: OXcarbazepine 300 MG TAB PO SCH (12:00)
== END 2017-11-24 13:45 | disposition home or self-care (01) | DRG 101 ==
LOC: NEPC 06:59 → NEDA 10:05 → HIMN 14:20
PROVIDERS: ADMIT Family Medicine; ATTEND Family Medicine
DX: G40.919 Epilepsy, unspecified, intractable, without status epilepticus (principal); S32.030A Wedge compression fracture of third lumbar vertebra, initial encounter for closed fracture; G93.89 Other specified disorders of brain; T42.0X5A Adverse effect of hydantoin derivatives, initial encounter; R62.50 Unspecified lack of expected normal physiological development in childhood; I10 Essential (primary) hypertension; E87.5 Hyperkalemia; M51.86 Other intervertebral disc disorders, lumbar region; W19.XXXA Unspecified fall, initial encounter; K21.9 Gastro-esophageal reflux disease without esophagitis; E66.3 Overweight; Z68.29 Body mass index [BMI] 29.0-29.9, adult
CPT/HCPCS: 70450; 72120; 72131; 80048; 80053; 80183; 80184; 80185; 82550; 83605; 84146; 84443; 85025; 87641; 93005; 95819; 96361; 96365; 96375; J2060; J7030; L0484; Q2009